=== PATIENT | male | born 1930 | race Caucasian/White ===

== ENCOUNTER 2017-01-01 10:20 | Emergency (ER) | payer MEDICARE, MEDICAID ==
[2017-01-01 10:36] VITALS: BP 111/67; PULSE 87; RESP 17; TEMP 97.4; O2SAT 97
--- NOTE | 2017-01-01 18:53 | C.PDOC ---
Time Seen by Provider: 01/01/17 11:18 Chief Complaint (Nursing): Rib Injury Past Medical History Vital Signs: Last Vital Signs Temp 97.4 F L 01/01/17 10:35 Pulse 87 01/01/17 10:35 Resp 17 01/01/17 10:35 BP 111/67 01/01/17 10:35 Pulse Ox 97 01/01/17 10:35 - Medical History PMH: Asthma, HTN Family History: States: Unknown Family Hx - Social History Hx Alcohol Use: No Hx Substance Use: No - Immunization History Hx Tetanus Toxoid Vaccination: No Hx Influenza Vaccination: No Hx Pneumococcal Vaccination: No Review Of Systems Review Of Systems: ROS cannot be obtained secondary to pt's inabilty to answer questions. ED Course And Treatment O2 Sat by Pulse Oximetry: 97 Disposition - Disposition Disposition: ELOPEMENT - ER ONLY Disposition Time: 10:35 Condition: UNKNOWN - Clinical Impression Clinical Impression: Patient left without being seen
--- NOTE | 2017-01-06 21:44 | CARD ---
APPROVED REPORT EKG Measurement Heart [id number] <Conclusion> Normal sinus rhythm Right bundle branch block Left anterior fascicular block Bifascicular block Abnormal ECG
== END 2017-01-01 11:43 | disposition left against medical advice (07) ==
LOC: C.ER 10:20
DX: S09.93XA Unspecified injury of face, initial encounter (principal); X58.XXXA Exposure to other specified factors, initial encounter; Z02.9 Encounter for administrative examinations, unspecified
CPT/HCPCS: 93005; LWBS0

== ENCOUNTER 2018-03-11 10:58 | Inpatient (IN) | payer MEDICARE, MEDICAID ==
--- NOTE | 2018-03-11 13:01 | C.PDOC ---
History Of Present Illness 87 year old patient sent to ED by PMD Dr. Hong for evaluation. Patient reports pain to the left calf and foot for the past 2 weeks. Patient also states onset of redness to same area for an unknown duration. Denies associated pain with bearing weight or movement, trauma, swelling, fever, chills. REFERRED DR HONG FOR EVAL. NEW ONSET L FOOT/CALF PAIN X 2 WEEKS. NEW ONSET REDNESS UNK DURATION. NO TRAUMA. NO ASSOC W WT BEAR OR MOVEMENT. NO SWELL, FEVER CHILLS. EXAM NONTOXIC EXT CHRONIC RED DISCOLORATION L MID CALF TO FOOT, NONBLANCHING. NO SWELL, EDEMA INCONSIST DP PULSE W DOPPLER L FOOT. STRONG DP R FOOT REMAINDER ENG Time Seen by Provider: 03/11/18 12:28 Chief Complaint (Nursing): Medical Clearance History Per: Patient History/Exam Limitations: no limitations Onset/Duration Of Symptoms: Days Current Symptoms Are (Timing): Still Present Past Medical History Reviewed: Historical Data, Nursing Documentation, Vital Signs Vital Signs: Last Vital Signs Temp 97.9 F 03/11/18 15:35 Pulse 89 03/11/18 15:35 Resp 20 03/11/18 15:35 BP 127/62 03/11/18 15:35 Pulse Ox 93 L 03/11/18 17:07 - Medical History PMH: Asthma, HTN Surgical History: No Surg Hx Family History: States: No Known Family Hx - Social History Hx Alcohol Use: No Hx Substance Use: No - Immunization History Hx Tetanus Toxoid Vaccination: No Hx Influenza Vaccination: No Hx Pneumococcal Vaccination: No Review Of Systems Except As Marked, All Systems Reviewed And Found Negative. Constitutional: Negative for: Fever, Chills Musculoskeletal: Positive for: Leg Pain (left), Foot Pain (left). Negative for : Other (leg/foot swelling) Neurological: Negative for: Weakness, Numbness Physical Exam - Physical Exam Appears: Non-toxic Skin: Warm, Dry, Other (NO GANGRENE, ULCERS) Head: Atraumatic, Normacephalic Eye(s): bilateral: Normal Inspection Neck: Normal ROM, Supple Chest: Symmetrical Cardiovascular: Rhythm Regular Respiratory: Normal Breath Sounds, No Rales, No Rhonchi, No Wheezing, Other ( NARD) Gastrointestinal/Abdominal: Soft, No Tenderness Back: Normal Inspection Extremity: No Swelling, Other (extreme chronic PURPLE/red discoloration from l foot>DISTAL L LEG, nonblanching.) Extremity: Right: Normal Color And Temperature, Bilateral: Atraumatic, No Pedal Edema Pulses: Left Dorsalis Pedis: Decreased (inconsistent DP pulse with doppler left foot), Right Dorsalis Pedis: Normal (strong) Neurological/Psych: Oriented x3, Normal Speech, Normal Cognition, Normal Motor, Normal Sensation Gait: Steady ED Course And Treatment - Laboratory Results Result Diagrams: 03/11/18 13:38 03/11/18 13:38 ECG: Interpreted By Me ECG Rhythm: Sinus Rhythm O2 Sat by Pulse Oximetry: 93 (RA) - Other Rad CXR X-Ray: Read By Radiologist Interpretation: FINDINGS: LUNGS: Minimal linear atelectatic fibrosis right lower lobe laterally. Bilateral lung quevedo otherwise unremarkable. PLEURA: No pneumothorax or pleural fluid seen. CARDIOVASCULAR: Normal. OSSEOUS STRUCTURES: Old healed right 7th and 8th rib fractures noted posteriorly. VISUALIZED UPPER ABDOMEN: Normal. OTHER FINDINGS: None. IMPRESSION: No acute infiltrate, pleural effusion or pneumothorax bilaterally. Examination is remarkable for linear atelectasis or fibrosis in the right lower lobe base laterally. Left Foot X-Ray: Read By Radiologist Interpretation: FINDINGS: BONES: No interval acute cardiopulmonary disease appreciated. JOINTS: NormalMild hallux valgus deformity. Further, additional degenerative changes seen throughout the interphalangeal joints diffusely which are diminished in joint space significantly and have surrounding them sclerotic cortical surfaces. . SOFT TISSUES: Normal. OTHER FINDINGS: None. IMPRESSION : No acute fracture dislocation. Degenerative changes are identified at the forefoot including hallux valgus deformity. Progress - Re-Evaluation Re-evaluation Note: 03/11/18 13:04 D/W PODIATRY RESIDENT WILL EVAL IN ER 03/11/18 14:20 SP EVAL PODIATRY, LIKELY REQUIRES VASCULAR EVAL AND STUDIES. PT APPEARS COMFORTABLE, NONTOXIC UNCH FROM INITIAL EXAM. FAMILY @ BEDSIDE. PT AND FAMILY ADVISED NEED FOR VASCULAR EVAL. UNABLE TO PERFORM ANGIO DUE TO ABN CREAT. PS DOES NOT WANT ADMISSION "NO MATTER WHAT" AND PREFERS TO HAVE VASC EVAL WITH PMD, OUTPT. FAMILY VOICES UNDERSTANDING OF PT WISHES AND ER PLAN. PENDING DOPPLER. 03/11/18 15:52 EXAM UNCH PRIOR. DUPLEX REPORT REVIEWED. PT STILL REFUSES TO STAY AND PREFERS TO DC, RETURN TOMORROW FOR ADMISSION. PENDING CALLBACK DR GUZMÁN. LOVENOX 03/11/18 16:[address] GUZMÁN AND WILL EVAL IN ER. 03/11/18 17:05 S/P EVAL DR GUZMÁN, ADMIT MEDICINE, ANTICOAG, IVF D/W DR Lance [facility] WILL ADMIT - Data Reviewed Data Reviewed: Lab, Diagnostic imaging, EKG, Old records - Continuity of Care Discussed patient case with:: Patient, Family-HIPPA compliant Medical Decision Making Medical Decision Making: Plan: * Venous blood gas shock panel * EKG * Labs Disposition Counseled Patient/Family Regarding: Studies Performed, Diagnosis - Disposition Disposition: HOSPITALIZED Disposition Time: 17:06 Condition: SERIOUS - POA Present On Arrival: None - Clinical Impression Clinical Impression: Arterial insufficiency of lower extremity, Acute renal insufficiency - Scribe Statement The provider has reviewed the documentation as recorded by the Barbaraibrosita Workman Keshawn Provider Attestation: All medical record entries made by the Scribrosita were at my direction and personally dictated by me. I have reviewed the chart and agree that the record accurately reflects my personal performance of the history, physical exam, medical decision making, and the department course for this patient. I have also personally directed, reviewed, and agree with the discharge instructions and disposition. Decision To Admit - Pt Status Changed To: Hospital Disposition Of: Inpatient - Admit Certification Admit to Inpatient:: After my assessment, the patient will require hospitalization for at least two midnights. This is because of the severity of symptoms shown, intensity of services needed, and/or the medical risk in this patient being treated as an outpatient. - InPatient: Physician Admission Certification: I certify that this patient requires 2 or more midnights of care for the following reason:: SEE NOTE - . Bed Request Type: Regular Admitting Physician: Kiko Camara Patient Diagnosis: Arterial insufficiency of lower extremity, Acute renal insufficiency
--- NOTE | 2018-03-11 13:25 | RAD ---
Date of service: 03/11/2018 PROCEDURE: CHEST RADIOGRAPH, 1 VIEW HISTORY: SOB COMPARISON: Chest radiographs 06/05/2017. FINDINGS: LUNGS: Minimal linear atelectatic fibrosis right lower lobe laterally. Bilateral lung quevedo otherwise unremarkable. PLEURA: No pneumothorax or pleural fluid seen. CARDIOVASCULAR: Normal. OSSEOUS STRUCTURES: Old healed right 7th and 8th rib fractures noted posteriorly. VISUALIZED UPPER ABDOMEN: Normal. OTHER FINDINGS: None. IMPRESSION: No acute infiltrate, pleural effusion or pneumothorax bilaterally. Examination is remarkable for linear atelectasis or fibrosis in the right lower lobe base laterally.
--- NOTE | 2018-03-11 13:36 | RAD ---
Date of service: 03/11/2018 PROCEDURE: Left Foot Radiographs. HISTORY: PAIN COMPARISON: None. FINDINGS: BONES: No interval acute cardiopulmonary disease appreciated. JOINTS: NormalMild hallux valgus deformity. Further, additional degenerative changes seen throughout the interphalangeal joints diffusely which are diminished in joint space significantly and have surrounding them sclerotic cortical surfaces. . SOFT TISSUES: Normal. OTHER FINDINGS: None. IMPRESSION: No acute fracture dislocation. Degenerative changes are identified at the forefoot including hallux valgus deformity.
[2018-03-11 13:48] LABS: VENOUS BLOOD GAS BASE EXCESS -2.1 mmol/L (0.0-2.0); VENOUS BLOOD GAS PCO2 60 mmHg (40-60); VENOUS BLOOD GAS PO2 13 mm/Hg (30-55); VENOUS BLOOD PH 7.25 (7.32-7.43)
[2018-03-11 13:53] LABS: BASO # 0.1 K/uL (0.0-0.2); BASO % 0.6 % (0.0-2.0); EOS # 0.3 K/uL (0.0-0.7); EOS % 2.4 % (0.0-4.0); HEMOGLOBIN 14.4 g/dL (12.0-18.0); LYMPH # 1.6 K/uL (1.0-4.3); LYMPH % 12.6 % (20.0-40.0); MEAN CELL VOLUME 95.6 fL (80.0-94.0); MEAN CORPUSCULAR HEMOGLOBIN 31.5 pg (27.0-31.0); MEAN CORPUSCULAR HGB CONC 32.9 g/dL (33.0-37.0); MEAN PLATELET VOLUME 7.3 fL (7.2-11.7); MONO # 1.2 K/uL (0.0-0.8); MONO % 9.4 % (0.0-10.0); NEUT # 9.7 K/uL (1.8-7.0); RBC 4.58 Mil/uL (4.40-5.90); RED CELL DISTRIBUTION WIDTH 15.5 % (11.5-14.5); WHITE BLOOD COUNT 12.9 K/uL (4.8-10.8)
[2018-03-11 13:56] LABS: INR 1.1; PROTHROMBIN TIME 11.6 SECONDS (9.7-12.2)
[2018-03-11 14:07] LABS: CALCIUM 9.2 mg/dl (8.6-10.4)
--- NOTE | 2018-03-11 14:50 | CP.PCM.CON ---
History of Present Illness - History of Present Illness History of Present Illness: 87 y/o male with PMHx of HTN seen in ED today after consultation for left lower extremity pain and redness. States he has pain in the entire left lower extremity whenever he walks. Admits it is a cramping sensation. Also admits to calf pain and foot pain x 2 weeks in duration. Denies any pain or discomfort in the RLE. Denies tingling numbness or burning to the lower extremities. Denies F/ C/N/V/CP/SOB PSH: denies SocHx: former cigarette smoker; denies EtOH or drug use All: NKDA Review of Systems - Review of Systems All systems: reviewed and no additional remarkable complaints except (per HPI) Past Patient History - Past Social History Smoking Status: Former Smoker - CARDIAC Hx Hypertension: Yes - PULMONARY Hx Asthma: Yes - PSYCHIATRIC Hx Substance Use: No - SURGICAL HISTORY Hx Surgeries: No Meds Allergies/Adverse Reactions: Allergies Allergy/AdvReac Type Severity Reaction Status Date / Time No Known Allergies Allergy Verified 03/11/18 11:17 Physical Exam - Constitutional Appears: Well, Non-toxic, No Acute Distress - Extremities Exam Additional comments: Lower extremity exam: Vasc: DP/PT pulses 1/4 R, non-palpable to LLE. Temperature gradient warm to cool on R, cool to cold on L. CFT delayed to all digits on LLE; <3 sec to RLE. Derm: Redness noted to entirety of LLE. No open lesions, no ecchymosis. Neuro: Protective sensation grossly intact Ortho: Diffuse tenderness to palpation of entirety of LLE including posterior calf pain. - Neurological Exam Neurological exam: Alert, Oriented x3 - Psychiatric Exam Psychiatric exam: Normal Affect, Normal Mood Results - Vital Signs Recent Vital Signs: Last Vital Signs Temp 97.9 F 03/11/18 11:19 Pulse 87 03/11/18 11:19 Resp 22 03/11/18 11:19 BP 111/69 03/11/18 11:19 Pulse Ox 93 L 03/11/18 14:26 - Labs Result Diagrams: 03/11/18 13:38 03/11/18 13:38 Labs: Laboratory Results - last 24 hr 03/11/18 03/11/18 03/11/18 13:38 13:38 13:38 WBC 12.9 H RBC 4.58 Hgb 14.4 Hct 43.8 MCV 95.6 H MCH 31.5 H MCHC 32.9 L RDW 15.5 H Plt Count 517 H MPV 7.3 Neut % (Auto) 75.0 Lymph % (Auto) 12.6 L [place] % (Auto) 9.4 Eos % (Auto) 2.4 Baso % (Auto) 0.6 Neut # (Auto) 9.7 H Lymph # (Auto) 1.6 [place] # (Auto) 1.2 H Eos # (Auto) 0.3 Baso # (Auto) 0.1 PT 11.6 INR 1.1 APTT 34 pO2 VBG pH VBG pCO2 VBG HCO3 VBG Total CO2 VBG O2 Sat (Calc) VBG Base Excess VBG Potassium Glucose Lactate Sodium 142 Potassium 4.2 Chloride 101 Carbon Dioxide 27 Anion Gap 19 BUN 33 H Creatinine 2.1 H Est GFR ( Amer) 36 Est GFR (Non-Af Amer) 30 Random Glucose 105 Calcium 9.2 Venous Blood Potassium 03/11/18 13:45 WBC RBC Hgb Hct MCV MCH MCHC RDW Plt Count MPV Neut % (Auto) Lymph % (Auto) [place] % (Auto) Eos % (Auto) Baso % (Auto) Neut # (Auto) Lymph # (Auto) [place] # (Auto) Eos # (Auto) Baso # (Auto) PT INR APTT pO2 13 L VBG pH 7.25 L VBG pCO2 60 VBG HCO3 20.9 VBG Total CO2 28.1 H VBG O2 Sat (Calc) 12.5 L VBG Base Excess -2.1 L VBG Potassium 3.9 Glucose 100 Lactate 1.9 Sodium 138.0 Potassium Chloride 103.0 Carbon Dioxide Anion Gap BUN Creatinine Est GFR ( Amer) Est GFR (Non-Af Amer) Random Glucose Calcium Venous Blood Potassium 3.9 Assessment & Plan - Assessment and Plan (Free Text) Assessment: 87 y/o male with LLE pain likely secondary to peripheral vascular disease Plan: Pt seen and evaluated in ED Discussed with attending Dr. Canseco Pt referred to primary care for referral to vascular surgeon to get angiogram for evaluation of LLE circulation Extremity U/S (-) for DVT Pt to follow up as outpatient for management of possible PVD Thank you for this consult
[2018-03-11] MEDS ORDERED: Enoxaparin 60 mg Syringe SC STA (15:51)
[2018-03-11] MEDS ORDERED: Enoxaparin 100 mg Syringe ONE (15:58)
--- NOTE | 2018-03-11 17:38 | CP.PCM.CON ---
History of Present Illness - History of Present Illness History of Present Illness: VASCULAR SURGERY CONSULT NOTE FOR DR. UGZMÁN 87yo M with PMHx of HTN presents to the ED with left lower extremity pain. The pain has been present for about 2 weeks. He has pain when walking. No pain on the right side. Denies any pain or discomfort in the RLE. Denies tingling numbness or burning to the lower extremities. Denies F/C/N/V/CP/SOB. PMHx: HTN, diverticulosis PSH: denies SocHx: former cigarette smoker; former EtOH, denies drug use All: NKDA Review of Systems - Review of Systems All systems: reviewed and no additional remarkable complaints except (as per HPI ) Past Patient History - Past Social History Smoking Status: Former Smoker - CARDIAC Hx Hypertension: Yes - PULMONARY Hx Asthma: Yes - PSYCHIATRIC Hx Substance Use: No - SURGICAL HISTORY Hx Surgeries: No Meds Allergies/Adverse Reactions: Allergies Allergy/AdvReac Type Severity Reaction Status Date / Time No Known Allergies Allergy Verified 03/11/18 11:17 Physical Exam - Constitutional Appears: Well, Non-toxic, No Acute Distress - Head Exam Head Exam: ATRAUMATIC, NORMAL INSPECTION - Respiratory Exam Respiratory Exam: NORMAL BREATHING PATTERN. absent: Respiratory Distress - Cardiovascular Exam Cardiovascular Exam: +S1, +S2 - GI/Abdominal Exam GI & Abdominal Exam: Soft. absent: Distended, Firm, Guarding, Rebound, Rigid, Tenderness - Extremities Exam Additional comments: Left foot cool to touch, Right foot warm Left femoral + doppler signal, no doppler signals to DP or PT Right femoral palpable pulse - Neurological Exam Neurological exam: Alert, Oriented x3 - Psychiatric Exam Psychiatric exam: Normal Affect, Normal Mood - Skin Skin Exam: Dry Additional comments: left foot cool Results - Vital Signs Recent Vital Signs: Last Vital Signs Temp 97.9 F 03/11/18 15:35 Pulse 89 03/11/18 15:35 Resp 20 03/11/18 15:35 BP 127/62 03/11/18 15:35 Pulse Ox 93 L 03/11/18 17:07 - Labs Result Diagrams: 03/11/18 13:38 03/11/18 13:38 Labs: Laboratory Results - last 24 hr 03/11/18 03/11/18 03/11/18 13:38 13:38 13:38 WBC 12.9 H RBC 4.58 Hgb 14.4 Hct 43.8 MCV 95.6 H MCH 31.5 H MCHC 32.9 L RDW 15.5 H Plt Count 517 H MPV 7.3 Neut % (Auto) 75.0 Lymph % (Auto) 12.6 L [place] % (Auto) 9.4 Eos % (Auto) 2.4 Baso % (Auto) 0.6 Neut # (Auto) 9.7 H Lymph # (Auto) 1.6 [place] # (Auto) 1.2 H Eos # (Auto) 0.3 Baso # (Auto) 0.1 PT 11.6 INR 1.1 APTT 34 pO2 VBG pH VBG pCO2 VBG HCO3 VBG Total CO2 VBG O2 Sat (Calc) VBG Base Excess VBG Potassium Glucose Lactate Sodium 142 Potassium 4.2 Chloride 101 Carbon Dioxide 27 Anion Gap 19 BUN 33 H Creatinine 2.1 H Est GFR ( Amer) 36 Est GFR (Non-Af Amer) 30 Random Glucose 105 Calcium 9.2 Venous Blood Potassium 03/11/18 13:45 WBC RBC Hgb Hct MCV MCH MCHC RDW Plt Count MPV Neut % (Auto) Lymph % (Auto) [place] % (Auto) Eos % (Auto) Baso % (Auto) Neut # (Auto) Lymph # (Auto) [place] # (Auto) Eos # (Auto) Baso # (Auto) PT INR APTT pO2 13 L VBG pH 7.25 L VBG pCO2 60 VBG HCO3 20.9 VBG Total CO2 28.1 H VBG O2 Sat (Calc) 12.5 L VBG Base Excess -2.1 L VBG Potassium 3.9 Glucose 100 Lactate 1.9 Sodium 138.0 Potassium Chloride 103.0 Carbon Dioxide Anion Gap BUN Creatinine Est GFR ( Amer) Est GFR (Non-Af Amer) Random Glucose Calcium Venous Blood Potassium 3.9 Assessment & Plan - Assessment and Plan (Free Text) Assessment: 87yo M with PMHx of HTN presents to the ED with left cold foot - Pt needs CTA - Elevated Cr 2.1 (no baseline) - Will hydrate and give mucomyst for CTA tomorrow - Discussed plan with Dr. Diamond Lima PGY-4
[2018-03-11] MEDS: Sodium Chloride 0.9% 1,000 ML IV SCH (18:13)
[2018-03-11] MEDS: Acetylcysteine 20% Inhal Soln (4ml) PO SCH (18:27)
[2018-03-11 18:29] LABS: SQUAMOUS EPITHIAL < 1 /hpf (0-5); URINE BILIRUBIN NEGATIVE (NEGATIVE); URINE BLOOD NEGATIVE (NEGATIVE); URINE CLARITY Clear (Clear); URINE COLOR Yellow (YELLOW); URINE GLUCOSE (UA) NORMAL (Normal); URINE LEUKOCYTE ESTERASE NEG Leu/uL (Negative); URINE PROTEIN NEGATIVE (NEGATIVE); URINE UROBILINOGEN NORMAL mg/dL (0.2-1.0)
[2018-03-11] MEDS ORDERED: Acetylcysteine 20% Inhal Soln (4ml) PO SCH (19:00)
--- NOTE | 2018-03-11 20:43 | CP.PCM.HP ---
Past Patient History - Past Social History Smoking Status: Former Smoker - CARDIAC Hx Hypertension: Yes - PULMONARY Hx Asthma: Yes - PSYCHIATRIC Hx Substance Use: No - SURGICAL HISTORY Hx Surgeries: No Meds Allergies/Adverse Reactions: Allergies Allergy/AdvReac Type Severity Reaction Status Date / Time No Known Allergies Allergy Verified 03/11/18 11:17 Physical Exam - Constitutional Appears: Well - Head Exam Head Exam: ATRAUMATIC, NORMAL INSPECTION, NORMOCEPHALIC - Eye Exam Eye Exam: EOMI, Normal appearance, PERRL Pupil Exam: NORMAL ACCOMODATION, PERRL - ENT Exam ENT Exam: Mucous Membranes Moist, Normal Exam - Neck Exam Neck exam: Positive for: Normal Inspection - Respiratory Exam Respiratory Exam: Decreased Breath Sounds - Cardiovascular Exam Cardiovascular Exam: REGULAR RHYTHM, +S1, +S2 - GI/Abdominal Exam GI & Abdominal Exam: Diminished Bowel Sounds, Soft - Rectal Exam Rectal Exam: Deferred Results - Vital Signs Recent Vital Signs: Last Vital Signs Temp 98.8 F 03/11/18 20:16 Pulse 84 03/11/18 20:16 Resp 18 03/11/18 20:16 BP 159/86 H 03/11/18 20:16 Pulse Ox 94 L 03/11/18 20:16 - Labs Result Diagrams: 03/11/18 13:38 03/11/18 13:38 Labs: Laboratory Results - last 24 hr 03/11/18 03/11/18 03/11/18 13:38 13:38 13:38 WBC 12.9 H RBC 4.58 Hgb 14.4 Hct 43.8 MCV 95.6 H MCH 31.5 H MCHC 32.9 L RDW 15.5 H Plt Count 517 H MPV 7.3 Neut % (Auto) 75.0 Lymph % (Auto) 12.6 L [place] % (Auto) 9.4 Eos % (Auto) 2.4 Baso % (Auto) 0.6 Neut # (Auto) 9.7 H Lymph # (Auto) 1.6 [place] # (Auto) 1.2 H Eos # (Auto) 0.3 Baso # (Auto) 0.1 PT 11.6 INR 1.1 APTT 34 pO2 VBG pH VBG pCO2 VBG HCO3 VBG Total CO2 VBG O2 Sat (Calc) VBG Base Excess VBG Potassium Glucose Lactate Sodium 142 Potassium 4.2 Chloride 101 Carbon Dioxide 27 Anion Gap 19 BUN 33 H Creatinine 2.1 H Est GFR ( Amer) 36 Est GFR (Non-Af Amer) 30 Random Glucose 105 Calcium 9.2 Venous Blood Potassium Urine Color Urine Clarity Urine pH Ur Specific [place] Urine Protein Urine Glucose (UA) Urine Ketones Urine Blood Urine Nitrate Urine Bilirubin Urine Urobilinogen Ur Leukocyte Esterase Urine WBC (Auto) Urine RBC (Auto) Ur Squamous Epith Cells Hyaline Casts 03/11/18 03/11/18 13:45 18:20 WBC RBC Hgb Hct MCV MCH MCHC RDW Plt Count MPV Neut % (Auto) Lymph % (Auto) [place] % (Auto) Eos % (Auto) Baso % (Auto) Neut # (Auto) Lymph # (Auto) [place] # (Auto) Eos # (Auto) Baso # (Auto) PT INR APTT pO2 13 L VBG pH 7.25 L VBG pCO2 60 VBG HCO3 20.9 VBG Total CO2 28.1 H VBG O2 Sat (Calc) 12.5 L VBG Base Excess -2.1 L VBG Potassium 3.9 Glucose 100 Lactate 1.9 Sodium 138.0 Potassium Chloride 103.0 Carbon Dioxide Anion Gap BUN Creatinine Est GFR ( Amer) Est GFR (Non-Af Amer) Random Glucose Calcium Venous Blood Potassium 3.9 Urine Color Yellow Urine Clarity Clear Urine pH 5.0 Ur Specific [place] 1.017 Urine Protein Negative Urine Glucose (UA) Normal Urine Ketones Negative Urine Blood Negative Urine Nitrate Negative Urine Bilirubin Negative Urine Urobilinogen Normal Ur Leukocyte Esterase Neg Urine WBC (Auto) < 1 Urine RBC (Auto) < 1 Ur Squamous Epith Cells < 1 Hyaline Casts 6-10 H
[2018-03-11] MEDS ORDERED: Piperacillin/Tazobact 3.375 gm 100 ML IVPB ONE (21:24)
[2018-03-11] MEDS: Piperacillin/Tazobact 3.375 GM in Sodium Chloride 100 ML IVPB SCH (21:26)
[2018-03-12] MEDS: Sodium Chloride 0.9% 1,000 ML IV SCH ×2 (02:54→11:00)
[2018-03-12] MEDS: Piperacillin/Tazobact 3.375 GM in Sodium Chloride 100 ML IVPB SCH ×3 (05:20→21:15)
[2018-03-12 09:55] LABS: ALB/GLOB RATIO 1.2 (1.0-2.1); ALBUMIN 3.3 g/dL (3.5-5.0); CALCIUM 8.4 mg/dl (8.6-10.4)
[2018-03-12] MEDS ORDERED: Sodium Chloride 0.9% 1,000 ML IV ONE (10:15)
[2018-03-12] MEDS: Acetylcysteine 20% Inhal Soln (4ml) PO SCH (10:59)
[2018-03-12] MEDS: Pantoprazole 40 mg EC Tab PO SCH (10:59)
[2018-03-12] MEDS: Enoxaparin 60 mg Syringe SC SCH (10:59)
[2018-03-12] MEDS ORDERED: Iodixanol 320 mg/ml 150 ml Bottle IV ONE (11:04)
--- NOTE | 2018-03-12 12:39 | CP.PCM.PN ---
Subjective - Date & Time of Evaluation Date of Evaluation: 03/12/18 Time of Evaluation: 12:40 - Subjective Subjective: clinically same Objective - Vital Signs/Intake and Output Vital Signs (last 24 hours): Temp Pulse Resp BP Pulse Ox 98.0 F 78 20 168/88 H 96 03/12/18 07:00 03/12/18 07:00 03/12/18 07:00 03/12/18 07:00 03/12/18 07:00 Intake and Output: 03/12/18 03/12/18 06:59 18:59 Intake Total 950 Balance 950 - Medications Medications: Current Medications Enoxaparin Sodium (Lovenox) 60 mg SC DAILY [facility] Last Admin: 03/12/18 10:59 Dose: 60 mg Sodium Chloride (Sodium Chloride 0.9%) 1,000 mls @ 125 mls/hr IV .Q8H [facility] Last Admin: 03/12/18 11:00 Dose: Not Given Piperacillin Sod/Tazobactam (Sod 3.375 gm/ Sodium Chloride) 100 mls @ 200 mls/ hr IVPB Q8H [facility] PRN Reason: Protocol Last Admin: 03/12/18 05:20 Dose: 200 mls/hr Pantoprazole Sodium (Protonix Ec Tab) 40 mg PO DAILY [facility] Last Admin: 03/12/18 10:59 Dose: 40 mg Pneumococcal Polyvalent Vaccine (Pneumovax 23 Vaccine) 0.5 ml IM .ONCE ONE Stop: 03/14/18 10:01 - Labs Labs: 03/11/18 13:38 03/12/18 09:21 PT 11.6 SECONDS (9.7-12.2) 03/11/18 13:38 INR 1.1 03/11/18 13:38 APTT 34 SECONDS (21-34) 03/11/18 13:38 - Constitutional Appears: Well - Head Exam Head Exam: ATRAUMATIC, NORMAL INSPECTION, NORMOCEPHALIC - Eye Exam Eye Exam: EOMI, Normal appearance, PERRL Pupil Exam: NORMAL ACCOMODATION, PERRL - ENT Exam ENT Exam: Mucous Membranes Moist, Normal Exam - Neck Exam Neck Exam: Full ROM, Normal Inspection. absent: Lymphadenopathy - Respiratory Exam Respiratory Exam: Decreased Breath Sounds - Cardiovascular Exam Cardiovascular Exam: REGULAR RHYTHM, +S1, +S2 - GI/Abdominal Exam GI & Abdominal Exam: Soft, Diminished Bowel Sounds - Rectal Exam Rectal Exam: Deferred
--- NOTE | 2018-03-12 15:00 | CT ---
Date of service: 03/12/2018 PROCEDURE: CT Angiography Abdomen, Pelvis and Lower Extremity with Contrast HISTORY: left cold foot COMPARISON: None available. TECHNIQUE: Technique: CT angiography of the abdomen, pelvis and bilateral lower extremities performed in the arterial phase of enhancement. Coronal and sagittal reformats, and well as rotating MIP images of the vessels generated at the workstation. Intravenous contrast dose: 150 milliliters Visipaque 320 Radiation dose: Total exam DLP = mGy-cm. This CT exam was performed using one or more of the following dose reduction techniques: Automated exposure control, adjustment of the mA and/or kV according to patient size, and/or use of iterative reconstruction technique. FINDINGS: CT ANGIOGRAPHY: ABDOMINAL AORTA:: There is significant plaque throughout the abdominal aorta with moderate stenosis of the infrarenal aorta. MAJOR AORTIC BRANCHES: Celiac [place]: Unremarkable. Superior mesenteric artery: Unremarkable. Inferior mesenteric artery: Unremarkable. Renal arteries: Unremarkable. PELVIC ARTERIES: Right Common Iliac: Unremarkable. Right External Iliac: Mild stenosis of the external iliac artery. Right Internal Iliac: Unremarkable. Left Common Iliac: Occlusion of left common iliac artery. Left External Iliac: Occlusion of the external iliac artery. Left Internal Iliac: Occlusion of the internal iliac artery. RIGHT LOWER EXTREMITY ARTERIES: Right Common Femoral: Unremarkable. Right Superficial Femoral: Occlusion of the SFA with no reconstitution. Right Profunda Femoris: Unremarkable. Right Popliteal:Popliteal artery fills via collateral and is unremarkable. Right Anterior Tibial: Unremarkable. Right Tibioperoneal Trunk: Unremarkable. Right Posterior Tibial: Unremarkable. Right Peroneal: Unremarkable. Right dorsalis pedis : Unremarkable. LEFT LOWER EXTREMITY ARTERIES: Left Common Femoral: Absence of the common femoral artery which fills via collateral. Left Superficial Femoral: Occlusion of the SFA with distal reconstitution. The distal SFA is mildly stenotic. Left Profunda Femoris: Unremarkable. Left Popliteal: Fills via collateral and is mildly stenotic. Left Anterior Tibial: Occlusion anterior tibial artery in the mid segment. Left Tibioperoneal Trunk: Unremarkable. Left Posterior Tibial: Unremarkable. Left Peroneal: Unremarkable. Left Dorsalis pedis: Unremarkable. NON-ANGIOGRAPHIC ASPECT OF THE EXAM: LOWER THORAX: Unremarkable. LIVER: Unremarkable. No gross lesion or ductal dilatation. GALLBLADDER AND BILE DUCTS: Unremarkable. PANCREAS: Unremarkable. No gross lesion or ductal dilatation. SPLEEN: Unremarkable. ADRENALS: Unremarkable. No mass. KIDNEYS AND URETERS: Unremarkable. No hydronephrosis. No solid mass. STOMACH AND BOWEL: Limited evaluation of PO contrast. No obvious mass. APPENDIX: Normal appendix. PERITONEUM: Unremarkable. No free fluid. No free air. LYMPH NODES: Unremarkable. No enlarged lymph nodes. BLADDER: Unremarkable. REPRODUCTIVE: Unremarkable. BONES: No acute fracture. OTHER FINDINGS: None. IMPRESSION: CT ANGIOGRAM ABDOMEN/PELVIS: 1. Significant plaque throughout the abdominal aorta with moderate stenosis of the infrarenal aorta. 2. There is no flow seen within the left common iliac artery external iliac artery and internal iliac artery. 3. Right common iliac artery is unremarkable. There is mild stenosis of the external iliac artery on the right. LEFT LOWER EXTREMITY CT ANGIOGRAM: 1. Left Common femoral artery fills via collateral and is mildly stenotic. 2. There is occlusion of the left SFA with distal reconstitution. The distal SFA is some mildly stenotic. 3. Profunda femoral artery is unremarkable. 4. Popliteal artery is moderately stenotic and fills via collaterals. 5. Runoff shows a patent peroneal artery and posterior tibial artery. Anterior tibial artery occludes in the mid segment. RIGHT LOWER EXTREMITY CT ANGIOGRAM: 1. The common femoral artery profunda femoral artery are unremarkable. 2. There is occlusion of the SFA with no reconstitution. 3. The popliteal artery is unremarkable. 4. Runoff shows patent 3 vessels.
--- NOTE | 2018-03-12 15:05 | VASCLAB ---
Date of service: 03/11/2018 PROCEDURE: Left Lower Extremity Venous Duplex Exam. HISTORY: PAIN R/O DVT PRIORS: None. TECHNIQUE: Left common femoral, femoral, popliteal and posterior tibial, peroneal and great saphenous veins were evaluated. Flow was assessed with color Doppler, compressibility, assessment of phasic flow and augmentation response. Report prepared by CARRINGTON Smith, RVT FINDINGS: LEFT: 1. Common Femoral Vein: 1.1. Compressibility - Fully compressible: Thrombus - None : Flow - Phasic: Augmentation -Normal: Reflux - None. 2. Femoral Vein: 2.1. Compressibility - Fully compressible: Thrombus - None: Flow - Phasic: Augmentation -Normal: Reflux - None. 3. Popliteal Vein: 3.1. Compressibility - Fully compressible: Thrombus - None: Flow - Phasic: Augmentation -Normal: Reflux - None. 4. Posterior Tibial Vein: 4.1. Compressibility - Fully compressible: Thrombus - None: Flow - Phasic: Augmentation -Normal: Reflux - Yes. 5. Peroneal Vein: 5.1. Compressibility - Fully compressible: Thrombus - None: Flow - Phasic: Augmentation -Normal: Reflux - None. 6. Great Saphenous Vein: 6.1. Compressibility - Fully compressible: Thrombus - None: Flow - Phasic: Augmentation - Normal: Reflux - None. OTHER FINDINGS: Absent flow noted in the left superficial femoral artery. Dr. Phelps notified about the findings. IMPRESSION: No evidence of deep or superficial vein thrombosis of the left lower extremity with excellent venous flow. 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 Normal venous flow noted in the right common femoral vein.
--- NOTE | 2018-03-12 16:31 | CP.PCM.CON ---
History of Present Illness - History of Present Illness History of Present Illness: CC: Preop Clearance HPI: 87 year old man with no pmx. Admitted to [facility] for severe pain in left foot due to chronic limb ischemia. Past Patient History - Past Medical History & Family History Past Medical History?: Yes - Past Social History Smoking Status: Heavy Smoker > 10 Cigarettes Daily - CARDIAC Hx Cardiac Disorders: Yes Hx Hypertension: Yes - PULMONARY Hx Respiratory Disorders: Yes Hx Asthma: Yes - NEUROLOGICAL Hx Neurological Disorder: No - HEENT Hx HEENT Problems: No - RENAL Hx Chronic Kidney Disease: No - ENDOCRINE/METABOLIC Hx Endocrine Disorders: No - HEMATOLOGICAL/ONCOLOGICAL Hx Blood Disorders: No - INTEGUMENTARY Hx Dermatological Problems: No - MUSCULOSKELETAL/RHEUMATOLOGICAL Hx Musculoskeletal Disorders: No Hx Falls: No - GASTROINTESTINAL Hx Gastrointestinal Disorders: No - GENITOURINARY/GYNECOLOGICAL Hx Genitourinary Disorders: No - PSYCHIATRIC Hx Psychophysiologic Disorder: No Hx Substance Use: No - SURGICAL HISTORY Hx Surgeries: No - ANESTHESIA Hx Anesthesia: No Meds Allergies/Adverse Reactions: Allergies Allergy/AdvReac Type Severity Reaction Status Date / Time No Known Allergies Allergy Verified 03/11/18 11:17 - Medications Medications: Current Medications Enoxaparin Sodium (Lovenox) 60 mg SC DAILY [facility] Last Admin: 03/12/18 10:59 Dose: 60 mg Sodium Chloride (Sodium Chloride 0.9%) 1,000 mls @ 125 mls/hr IV .Q8H [facility] Last Admin: 03/12/18 11:00 Dose: Not Given Piperacillin Sod/Tazobactam (Sod 3.375 gm/ Sodium Chloride) 100 mls @ 200 mls/ hr IVPB Q8H [facility] PRN Reason: Protocol Last Admin: 03/12/18 13:40 Dose: 200 mls/hr Pantoprazole Sodium (Protonix Ec Tab) 40 mg PO DAILY [facility] Last Admin: 03/12/18 10:59 Dose: 40 mg Pneumococcal Polyvalent Vaccine (Pneumovax 23 Vaccine) 0.5 ml IM .ONCE ONE Stop: 03/14/18 10:01 Physical Exam - Constitutional Appears: Well, Non-toxic - Head Exam Head Exam: ATRAUMATIC, NORMAL INSPECTION - Eye Exam Eye Exam: PERRL. absent: Scleral icterus - ENT Exam ENT Exam: Normal External Ear Exam Additional comments: Poor dentition - Neck Exam Neck exam: Negative for: Lymphadenopathy, Thyromegaly - Respiratory Exam Respiratory Exam: Wheezes, NORMAL BREATHING PATTERN - Cardiovascular Exam Cardiovascular Exam: REGULAR RHYTHM, RRR, +S1, +S2. absent: JVD - GI/Abdominal Exam GI & Abdominal Exam: Normal Bowel Sounds. absent: Organomegaly - Extremities Exam Additional comments: Left foot is cool and erythematous - Neurological Exam Neurological exam: CN II-XII Intact, Oriented x3 - Psychiatric Exam Psychiatric exam: Normal Affect, Normal Mood Results - Vital Signs Recent Vital Signs: Last Vital Signs Temp 97.4 F L 03/12/18 15:00 Pulse 84 03/12/18 15:00 Resp 20 03/12/18 15:00 BP 148/76 03/12/18 15:00 Pulse Ox 96 03/12/18 15:00 - Labs Result Diagrams: 03/11/18 13:38 03/12/18 09:21 Labs: Laboratory Results - last 24 hr 03/11/18 03/12/18 18:20 09:21 Sodium 139 Potassium 4.4 Chloride 105 Carbon Dioxide 23 Anion Gap 16 BUN 27 H Creatinine 1.8 H Est GFR ( Amer) 43 Est GFR (Non-Af Amer) 36 Random Glucose 118 H Calcium 8.4 L Total Bilirubin 0.7 AST 37 ALT 15 L Alkaline Phosphatase 64 Total Protein 6.2 L Albumin 3.3 L Globulin 2.9 Albumin/Globulin Ratio 1.2 Urine Color Yellow Urine Clarity Clear Urine pH 5.0 Ur Specific [place] 1.017 Urine Protein Negative Urine Glucose (UA) Normal Urine Ketones Negative Urine Blood Negative Urine Nitrate Negative Urine Bilirubin Negative Urine Urobilinogen Normal Ur Leukocyte Esterase Neg Urine WBC (Auto) < 1 Urine RBC (Auto) < 1 Ur Squamous Epith Cells < 1 Hyaline Casts 6-10 H - EKG Data EKG Interpreted by: Myself EKG shows normal: Sinus rhythm - Imaging and Cardiology Chest x-ray Additional comment: No infiltrates or effusions Assessment & Plan - Assessment and Plan (Free Text) Assessment: 87 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
--- NOTE | 2018-03-12 17:11 | CARD ---
APPROVED REPORT Date of service: 03/12/2018 EXAM: Two-dimensional and M-mode echocardiogram with Doppler and color Doppler. Other Information Quality : GoodRhythm : INDICATION Pre-Op 2D DIMENSIONS IVSd0.9 (0.7-1.1cm)LVDd3.9 (3.9-5.9cm) PWd1.0 (0.7-1.1cm)LVDs2.5 (2.5-4.0cm) LVEF (%)67.0 (>50%) M-Mode DIMENSIONS Left Atrium (MM)3.30 (2.5-4.0cm)IVSd1.00 (0.7-1.1cm) Aortic Root3.10 (2.2-3.7cm)LVDd5.00 (4.0-5.6cm) Aortic Cusp Exc.1.90 (1.5-2.0cm)PWd0.80 (0.7-1.1cm) LVDs3.10 (2.0-3.8cm)LVEF (%)67 (>50%) Mitral Valve E/A ratio0.0 TDI E/Lateral E'0.0E/Medial E'0.0 Tricuspid Valve RAP [id number] Peak [id number] LEFT VENTRICLE The left ventricle is normal size. There is normal left ventricular wall thickness. The left ventricular function is normal. The left ventricular ejection fraction is within the normal range. There is normal LV segmental wall motion. Transmitral Doppler flow pattern is Grade I-abnormal relaxation pattern. RIGHT VENTRICLE The right ventricle is normal size. There is normal right ventricular wall thickness. The right ventricular systolic function is normal. ATRIA The left atrium size is normal. The right atrium size is normal. AORTIC VALVE The aortic valve is mildly thickened. No aortic regurgitation is present. There is no aortic valvular stenosis. MITRAL VALVE The mitral valve is mildly thickened. There is no evidence of mitral valve prolapse. There is no mitral valve stenosis. Mitral regurgitation is mild. TRICUSPID VALVE The tricuspid valve is normal in structure. There is mild tricuspid regurgitation. There is mild pulmonary hypertension. PULMONIC VALVE The pulmonary valve is normal in structure. There is no pulmonic valvular regurgitation. GREAT VESSELS The aortic root is normal in size. The IVC is normal in size and collapses >50% with inspiration. <Conclusion> The left ventricle is normal size. There is normal left ventricular wall thickness. The left ventricular function is normal. The left ventricular ejection fraction is within the normal range. There is normal LV segmental wall motion. Transmitral Doppler flow pattern is Grade I-abnormal relaxation pattern. Mitral regurgitation is mild. There is mild tricuspid regurgitation. There is mild pulmonary hypertension.
--- NOTE | 2018-03-12 17:59 | CP.PCM.PN ---
Subjective - Date & Time of Evaluation Date of Evaluation: 03/12/18 Time of Evaluation: 10:00 - Subjective Subjective: VASCULAR SURGERY PROGRESS NOTE FOR DR. GUZMÁN Patient seen and examined at bedside. He reports pain in his left leg. Plan for CTA today. Objective - Vital Signs/Intake and Output Vital Signs (last 24 hours): Temp Pulse Resp BP Pulse Ox 97.4 F L 84 20 148/76 96 03/12/18 15:00 03/12/18 15:00 03/12/18 15:00 03/12/18 15:00 03/12/18 15:00 Intake and Output: 03/12/18 03/12/18 06:59 18:59 Intake Total 950 1200 Output Total 900 Balance 950 300 - Medications Medications: Current Medications Enoxaparin Sodium (Lovenox) 60 mg SC DAILY [facility] Last Admin: 03/12/18 10:59 Dose: 60 mg Piperacillin Sod/Tazobactam (Sod 3.375 gm/ Sodium Chloride) 100 mls @ 200 mls/ hr IVPB Q8H [facility] PRN Reason: Protocol Last Admin: 03/12/18 13:40 Dose: 200 mls/hr Lactated Ringer's (Lactated Ringer's) 1,000 mls @ 125 mls/hr IV .Q8H [facility] Pantoprazole Sodium (Protonix Ec Tab) 40 mg PO DAILY [facility] Last Admin: 03/12/18 10:59 Dose: 40 mg Pneumococcal Polyvalent Vaccine (Pneumovax 23 Vaccine) 0.5 ml IM .ONCE ONE Stop: 03/14/18 10:01 - Labs Labs: 03/11/18 13:38 03/12/18 09:21 PT 11.6 SECONDS (9.7-12.2) 03/11/18 13:38 INR 1.1 03/11/18 13:38 APTT 34 SECONDS (21-34) 03/11/18 13:38 - Constitutional Appears: Non-toxic, No Acute Distress - Respiratory Exam Respiratory Exam: NORMAL BREATHING PATTERN. absent: Respiratory Distress - Cardiovascular Exam Cardiovascular Exam: +S1, +S2 - GI/Abdominal Exam GI & Abdominal Exam: Soft. absent: Tenderness - Extremities Exam Additional comments: Left foot cool No doppler signal to DP or PT Assessment and Plan - Assessment and Plan (Free Text) Assessment: 87yo M with PMHx of HTN presents with left cold foot and found to have SFA occlusion - CTA: Occlusion of the left SFA with distal reconstitution. The distal SFA is some mildly stenotic. Occlusion of Right SFA with no reconstitution. - Plan for OR for fem-fem bypass tomorrow - NPO past midnight - Type and cross - May continue Lovenox - Needs cardiac clearance, ECHO done, cardio planning for stress test - Discussed plan with Dr. Diamond Lima PGY-4
[2018-03-12] MEDS ORDERED: Lactated Ringer's 1,000 ML IV SCH (18:00)
[2018-03-13] MEDS: Lactated Ringer's 1,000 ML IV SCH ×3 (02:00→21:16)
[2018-03-13] MEDS: Piperacillin/Tazobact 3.375 GM in Sodium Chloride 100 ML IVPB SCH ×3 (05:57→21:15)
[2018-03-13 06:35] LABS: BASO # 0.1 K/uL (0.0-0.2); BASO % 0.7 % (0.0-2.0); EOS # 0.2 K/uL (0.0-0.7); EOS % 1.6 % (0.0-4.0); LYMPH # 1.8 K/uL (1.0-4.3); LYMPH % 13.9 % (20.0-40.0); MEAN CELL VOLUME 94.1 fL (80.0-94.0); MEAN CORPUSCULAR HEMOGLOBIN 31.6 pg (27.0-31.0); MEAN CORPUSCULAR HGB CONC 33.6 g/dL (33.0-37.0); MEAN PLATELET VOLUME 7.7 fL (7.2-11.7); MONO # 1.2 K/uL (0.0-0.8); MONO % 9.7 % (0.0-10.0); NEUT # 9.4 K/uL (1.8-7.0); NEUT % 74.1 % (50.0-75.0); RBC 4.43 Mil/uL (4.40-5.90); WHITE BLOOD COUNT 12.7 K/uL (4.8-10.8)
[2018-03-13 07:37] LABS: CALCIUM 8.7 mg/dl (8.6-10.4)
[2018-03-13] MEDS ORDERED: Caffeine Citrated **INJ** 20 MG/ML IV ONE (07:41)
--- NOTE | 2018-03-13 09:17 | CP.PCM.PN ---
Subjective - Date & Time of Evaluation Date of Evaluation: 03/13/18 Time of Evaluation: 09:08 - Subjective Subjective: Events reviewed Objective - Vital Signs/Intake and Output Vital Signs (last 24 hours): Temp Pulse Resp BP Pulse Ox 98.4 F 81 20 176/84 H 95 03/13/18 07:25 03/13/18 08:13 03/13/18 07:25 03/13/18 07:25 03/13/18 07:25 Intake and Output: 03/13/18 03/13/18 06:59 18:59 Intake Total 850 Output Total 600 Balance 250 - Medications Medications: Current Medications Enoxaparin Sodium (Lovenox) 60 mg SC DAILY [facility] Last Admin: 03/12/18 10:59 Dose: 60 mg Piperacillin Sod/Tazobactam (Sod 3.375 gm/ Sodium Chloride) 100 mls @ 200 mls/ hr IVPB Q8H [facility] PRN Reason: Protocol Last Admin: 03/13/18 05:57 Dose: 200 mls/hr Lactated Ringer's (Lactated Ringer's) 1,000 mls @ 100 mls/hr IV .Q10H [facility] Last Admin: 03/13/18 02:00 Dose: 100 mls/hr Pantoprazole Sodium (Protonix Ec Tab) 40 mg PO DAILY [facility] Last Admin: 03/12/18 10:59 Dose: 40 mg Pneumococcal Polyvalent Vaccine (Pneumovax 23 Vaccine) 0.5 ml IM .ONCE ONE Stop: 03/14/18 10:01 Tramadol HCl (Ultram) 25 mg PO TID PRN PRN Reason: Pain, Mild (1-3) Last Admin: 03/13/18 01:59 Dose: 25 mg - Labs Labs: 03/13/18 06:29 03/13/18 06:29 PT 11.6 SECONDS (9.7-12.2) 03/11/18 13:38 INR 1.1 03/11/18 13:38 APTT 34 SECONDS (21-34) 03/11/18 13:38 - Constitutional Appears: Well, Chronically Ill - Respiratory Exam Respiratory Exam: Clear to Ausculation Bilateral, NORMAL BREATHING PATTERN - Cardiovascular Exam Cardiovascular Exam: REGULAR RHYTHM, RRR, +S1, +S2, +S4. absent: JVD - GI/Abdominal Exam GI & Abdominal Exam: Normal Bowel Sounds. 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
[2018-03-13] MEDS: Pantoprazole 40 mg EC Tab PO SCH (11:33)
[2018-03-13] MEDS: Enoxaparin 60 mg Syringe SC SCH (11:36)
--- NOTE | 2018-03-13 13:42 | CARD ---
APPROVED REPORT Date of service: 03/11/2018 EKG Measurement Heart [id number] TN [id number] <Conclusion> Normal sinus rhythm Left axis deviation Right bundle branch block Abnormal ECG
--- NOTE | 2018-03-13 14:17 | CP.PCM.PN ---
Subjective - Date & Time of Evaluation Date of Evaluation: 03/13/18 Time of Evaluation: 07:00 - Subjective Subjective: VASCULAR SURGERY PROGRESS NOTE FOR DR. GUZMÁN Patient seen and examined at bedside. He reports pain in his left leg. Patient going for stress test today in preparation for fem-fem bypass. Objective - Vital Signs/Intake and Output Vital Signs (last 24 hours): Temp Pulse Resp BP Pulse Ox 98.4 F 81 20 176/84 H 95 03/13/18 07:25 03/13/18 08:13 03/13/18 07:25 03/13/18 07:25 03/13/18 07:25 Intake and Output: 03/13/18 03/13/18 06:59 18:59 Intake Total 850 Output Total 600 Balance 250 - Medications Medications: Current Medications Albuterol/Ipratropium (Duoneb 3 Mg/0.5 Mg (3 Ml) Ud) 3 ml INH RQ6 [facility] Enoxaparin Sodium (Lovenox) 60 mg SC DAILY [facility] Last Admin: 03/13/18 11:36 Dose: Not Given Piperacillin Sod/Tazobactam (Sod 3.375 gm/ Sodium Chloride) 100 mls @ 200 mls/ hr IVPB Q8H [facility] PRN Reason: Protocol Last Admin: 03/13/18 13:50 Dose: 200 mls/hr Lactated Ringer's (Lactated Ringer's) 1,000 mls @ 100 mls/hr IV .Q10H [facility] Last Admin: 03/13/18 13:09 Dose: Not Given Labetalol HCl (Trandate) 100 mg PO BID [facility] Last Admin: 03/13/18 11:33 Dose: Not Given Pantoprazole Sodium (Protonix Ec Tab) 40 mg PO DAILY [facility] Last Admin: 03/13/18 11:33 Dose: Not Given Pneumococcal Polyvalent Vaccine (Pneumovax 23 Vaccine) 0.5 ml IM .ONCE ONE Stop: 03/14/18 10:01 Tramadol HCl (Ultram) 25 mg PO TID PRN PRN Reason: Pain, Mild (1-3) Last Admin: 03/13/18 01:59 Dose: 25 mg - Labs Labs: 03/13/18 06:29 03/13/18 06:29 PT 11.6 SECONDS (9.7-12.2) 03/11/18 13:38 INR 1.1 03/11/18 13:38 APTT 34 SECONDS (21-34) 03/11/18 13:38 - Constitutional Appears: Non-toxic, No Acute Distress - Head Exam Head Exam: ATRAUMATIC, NORMAL INSPECTION - Eye Exam Eye Exam: EOMI, Normal appearance - Respiratory Exam Respiratory Exam: NORMAL BREATHING PATTERN. absent: Respiratory Distress - Cardiovascular Exam Cardiovascular Exam: +S1, +S2 - GI/Abdominal Exam GI & Abdominal Exam: Soft. absent: Tenderness - Extremities Exam Additional comments: Left foot warmer than yesterday but still cooler than right leg - Neurological Exam Neurological Exam: Alert, Awake - Psychiatric Exam Psychiatric exam: Normal Affect, Normal Mood Assessment and Plan - Assessment and Plan (Free Text) Assessment: 87yo M with PMHx of HTN presents with left cold foot and found to have SFA occlusion - CTA: Occlusion of the left SFA with distal reconstitution. The distal SFA is some mildly stenotic. Occlusion of Right SFA with no reconstitution. - Plan for OR for fem-fem bypass Saturday - NPO past midnight - Type and cross - May continue Lovenox - Needs cardiac clearance, ECHO done, cardio planning for stress test - Discussed plan with Dr. Diamond Lima PGY-4
--- NOTE | 2018-03-13 16:15 | CARD ---
APPROVED REPORT Date of service: 03/13/2018 Protocol: PHARMACOLOGICAL STRESS Test Type: LEXISCAN Test Indications: PRE OP Medications: LIST SCAN Medical History: PRE OP Target HR: 133 bpm Resting Heart Rate: 87 bpm Resting Blood Pressure: 150/70mmHg submaximum (85%): 113 bpm TEST SUMMARY [id number]/70.0. INFUSIONDOSE 100:[id number]/70.0. [id number]/80.0. PROCEDURE Pharmacologic stress testing was performed using 0.4mg per 5ml of regadenoson given intravenously over 7-10 seconds. POST EXERCISE Target HR: No Max HR: 89 bpm 83% of Maximum Predicted HR: 133 bpm Exercise duration: 00:30 min:sec, 0 Stage Exercise capacity: 1.0METs Max Blood Pressure: 166/80mmHg Chest Pain: Yes, Angina index: 0 Arrhythmia: Yes, ST Change: Yes, Deviation: 0 mm INTERPRETATION Stress EKG Conclusion: Shortness of breath resolved after 30 seconds without reversal agent. Follow up nuclear perfusion images. RESTING ECG Rhythm: Sinus Conduction: Normal Arrhythmias: None STRESS ECG Rhythm: Sinus Conduction: Normal Arrhythmias: None Stress EKG shows no significant changes. EXAM: Myocardial Perfusion STRESS/REST Imaging Protocol The imaging protocol used to acquire images was Stress Tc-99m/rest Tc-99m 1 day Stress Spect myocardial perfusion imaging was performed in supine position 55 minutes following the injection of 12.7 mCi of Tc-99 Myoview. Gated Rest Spect was performed 65 minutes after intravenous 30.0 mci Tc-99 Myoview injection. The images were gated to evaluate regional wall motion and calculate ventricular ejection fraction.Images were reconstructed using backfilter projection method in short horizontal and verticle long axis. Spect slices were generated. RESTING DATA EDV60.70inSX3.60L/min1/3 Pk. Filling Rate0.87EDV/sec LV Time to Pk. Filling Utmk563.97msec ESV18.00mlMyocardial Zpfs953.00gLV Time to Pk. Ejection Nanj270.15msec Pk. Fill Rate1.77EDV/secAv. Heart Rate86.00bpm EF70.00%Pk. Emptying Rate4.52ESV/sec STRESS DATA EDV60.99qhYY2.00L/min ESV8.00mlMyocardial Ewxl477.00g Pk. Fill Rate4.76EDV/sec EF87.00%Pk. Emptying Rate5.86ESV/sec 1/3 Pk. Filling Rate0.91EDV/secRegional WT score at stress:1.00 LV Time to Pk. Filling Rate:156.12msecRegional WM score at stress:0.00 LV Time to Pk. Ejection Rate:136.72msecSummed WT score at stress:10.00 Av. Heart Rate96.00bpmSummed WM score at stress:0.00 LV Perf. Quant 17 Seg. SSS0.00 17 Seg. SRS2.00 17 Seg. SDS0.00 Stress Defect Extent (% LAD)0.00Rest Defect Extent (% LAD)0.00Rev. Defect Extent (% LAD)0.00 Stress Defect Extent (% LCX)0.00Rest Defect Extent (% LCX)11.30Rev. Defect Extent (% LCX)0.00 Stress Defect Extent (% RCA)0.00Rest Defect Extent (% RCA)6.70Rev. Defect Extent (% RCA)0.00 Stress Defect Extent (% SILVINA)0.00Rest Defect Extent (% SILVINA)4.60Rev. Defect Extent (% SILVINA)0.00 Other Information Quality:Good IMPRESSION Normal Myocardial Perfusion exercise stress study Global LV Function: Normal Stress Test Summary: Normal LV Perfusion Summary: Normal Left Ventricle LV Function:Left ventricle systolic function is normal. The Ejection Fraction is >70%. Regional Wall Motion:There is normal left ventricular wall motion. Metabolism/Perfusion There are no perfusion/metabolism defects. Conclusion 1. No evidence for reversible ischemia 2. Normal LVEF and wall motion 3. * Patient may proceed with LE vascular surgery without need of additional cardiac intervention.
--- NOTE | 2018-03-13 16:31 | CP.PCM.CON ---
History of Present Illness - History of Present Illness History of Present Illness: reason for consultation: pulmonary clearance for surgery 87-year-old male with history of COPD, hypertension who presented to emergency room with left lower extremity pain and redness. According to daughter and patient also having shortness of breath on minimal exertion and uses nebulizer treatment and Advair at home. Patient has long history of smoking and quit many years ago. ABG consistent with hypercapnia. denies cough, denies fever chills, denies chest PSH: denies SocHx: former cigarette smoker; denies EtOH or drug use All: NKda Review of Systems - Review of Systems All systems: reviewed and no additional remarkable complaints except (shortness of breath on exertion) Past Patient History - Past Medical History & Family History Past Medical History?: Yes - Past Social History Smoking Status: Heavy Smoker > 10 Cigarettes Daily - CARDIAC Hx Cardiac Disorders: Yes Hx Hypertension: Yes - PULMONARY Hx Respiratory Disorders: Yes Hx Asthma: Yes - NEUROLOGICAL Hx Neurological Disorder: No - HEENT Hx HEENT Problems: No - RENAL Hx Chronic Kidney Disease: No - ENDOCRINE/METABOLIC Hx Endocrine Disorders: No - HEMATOLOGICAL/ONCOLOGICAL Hx Blood Disorders: No - INTEGUMENTARY Hx Dermatological Problems: No - MUSCULOSKELETAL/RHEUMATOLOGICAL Hx Musculoskeletal Disorders: No Hx Falls: No - GASTROINTESTINAL Hx Gastrointestinal Disorders: No - GENITOURINARY/GYNECOLOGICAL Hx Genitourinary Disorders: No - PSYCHIATRIC Hx Psychophysiologic Disorder: No Hx Substance Use: No - SURGICAL HISTORY Hx Surgeries: No - ANESTHESIA Hx Anesthesia: No Meds Allergies/Adverse Reactions: Allergies Allergy/AdvReac Type Severity Reaction Status Date / Time No Known Allergies Allergy Verified 03/11/18 11:17 - Medications Medications: Current Medications Albuterol/Ipratropium (Duoneb 3 Mg/0.5 Mg (3 Ml) Ud) 3 ml INH RQ6 [facility] Enoxaparin Sodium (Lovenox) 60 mg SC DAILY [facility] Last Admin: 03/13/18 11:36 Dose: Not Given Piperacillin Sod/Tazobactam (Sod 3.375 gm/ Sodium Chloride) 100 mls @ 200 mls/ hr IVPB Q8H [facility] PRN Reason: Protocol Last Admin: 03/13/18 13:50 Dose: 200 mls/hr Lactated Ringer's (Lactated Ringer's) 1,000 mls @ 100 mls/hr IV .Q10H [facility] Last Admin: 03/13/18 13:09 Dose: Not Given Labetalol HCl (Trandate) 100 mg PO BID [facility] Last Admin: 03/13/18 11:33 Dose: Not Given Methylprednisolone (Solu-Medrol) 40 mg IV Q8H [facility] Pantoprazole Sodium (Protonix Ec Tab) 40 mg PO DAILY [facility] Last Admin: 03/13/18 11:33 Dose: Not Given Pneumococcal Polyvalent Vaccine (Pneumovax 23 Vaccine) 0.5 ml IM .ONCE ONE Stop: 03/14/18 10:01 Tramadol HCl (Ultram) 25 mg PO TID PRN PRN Reason: Pain, Mild (1-3) Last Admin: 03/13/18 01:59 Dose: 25 mg Physical Exam - Head Exam Head Exam: ATRAUMATIC, NORMOCEPHALIC - Eye Exam Eye Exam: Normal appearance - ENT Exam ENT Exam: Mucous Membranes Moist - Neck Exam Neck exam: Positive for: Normal Inspection - Respiratory Exam Respiratory Exam: Decreased Breath Sounds - Cardiovascular Exam Cardiovascular Exam: REGULAR RHYTHM - GI/Abdominal Exam GI & Abdominal Exam: Normal Bowel Sounds, Soft Results - Vital Signs Recent Vital Signs: Last Vital Signs Temp 98.4 F 03/13/18 07:25 Pulse 81 03/13/18 08:13 Resp 20 03/13/18 07:25 BP 176/84 H 03/13/18 07:25 Pulse Ox 95 03/13/18 07:25 - Labs Result Diagrams: 03/13/18 06:29 03/13/18 06:29 Labs: Laboratory Results - last 24 hr 03/12/18 03/13/18 03/13/18 19:35 06:29 06:29 WBC 12.7 H RBC 4.43 Hgb 14.0 Hct 41.7 MCV 94.1 H MCH 31.6 H MCHC 33.6 RDW 15.0 H Plt Count 427 H MPV 7.7 Neut % (Auto) 74.1 Lymph % (Auto) 13.9 L Starke % (Auto) 9.7 Eos % (Auto) 1.6 Baso % (Auto) 0.7 Neut # (Auto) 9.4 H Lymph # (Auto) 1.8 Starke # (Auto) 1.2 H Eos # (Auto) 0.2 Baso # (Auto) 0.1 Sodium 139 Potassium 4.0 Chloride 104 Carbon Dioxide 24 Anion Gap 15 BUN 21 H Creatinine 1.4 Est GFR ( Amer) 58 Est GFR (Non-Af Amer) 48 Random Glucose 103 Calcium 8.7 Blood Type O POSITIVE Antibody Screen Negative Assessment & Plan (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
--- NOTE | 2018-03-13 17:29 | CP.PCM.PN ---
Subjective - Date & Time of Evaluation Date of Evaluation: 03/13/18 Time of Evaluation: 11:00 - Subjective Subjective: clinically same Objective - Vital Signs/Intake and Output Vital Signs (last 24 hours): Temp Pulse Resp BP Pulse Ox 97.3 F L 96 H 20 164/71 H 98 03/13/18 15:00 03/13/18 15:00 03/13/18 15:00 03/13/18 15:00 03/13/18 15:00 Intake and Output: 03/13/18 03/13/18 06:59 18:59 Intake Total 850 Output Total 600 Balance 250 - Medications Medications: Current Medications Albuterol/Ipratropium (Duoneb 3 Mg/0.5 Mg (3 Ml) Ud) 3 ml INH RQ6 [facility] Enoxaparin Sodium (Lovenox) 60 mg SC DAILY [facility] Last Admin: 03/13/18 11:36 Dose: Not Given Piperacillin Sod/Tazobactam (Sod 3.375 gm/ Sodium Chloride) 100 mls @ 200 mls/ hr IVPB Q8H [facility] PRN Reason: Protocol Last Admin: 03/13/18 13:50 Dose: 200 mls/hr Lactated Ringer's (Lactated Ringer's) 1,000 mls @ 100 mls/hr IV .Q10H [facility] Last Admin: 03/13/18 13:09 Dose: Not Given Labetalol HCl (Trandate) 100 mg PO BID [facility] Last Admin: 03/13/18 11:33 Dose: Not Given Methylprednisolone (Solu-Medrol) 40 mg IV Q8H [facility] Pantoprazole Sodium (Protonix Ec Tab) 40 mg PO DAILY [facility] Last Admin: 03/13/18 11:33 Dose: Not Given Pneumococcal Polyvalent Vaccine (Pneumovax 23 Vaccine) 0.5 ml IM .ONCE ONE Stop: 03/14/18 10:01 Tramadol HCl (Ultram) 25 mg PO TID PRN PRN Reason: Pain, Mild (1-3) Last Admin: 03/13/18 01:59 Dose: 25 mg - Labs Labs: 03/13/18 06:29 03/13/18 06:29 PT 11.6 SECONDS (9.7-12.2) 03/11/18 13:38 INR 1.1 03/11/18 13:38 APTT 34 SECONDS (21-34) 03/11/18 13:38 - Constitutional Appears: Well - Head Exam Head Exam: ATRAUMATIC, NORMAL INSPECTION, NORMOCEPHALIC - Eye Exam Eye Exam: EOMI, Normal appearance, PERRL Pupil Exam: NORMAL ACCOMODATION, PERRL - ENT Exam ENT Exam: Mucous Membranes Moist, Normal Exam - Neck Exam Neck Exam: Full ROM, Normal Inspection. absent: Lymphadenopathy - Respiratory Exam Respiratory Exam: Decreased Breath Sounds - Cardiovascular Exam Cardiovascular Exam: REGULAR RHYTHM, +S1, +S2 - GI/Abdominal Exam GI & Abdominal Exam: Soft, Diminished Bowel Sounds - Rectal Exam Rectal Exam: Deferred
[2018-03-13] MEDS: MethylPREDNISolone 40 mg Vial IV SCH (17:31)
[2018-03-13] MEDS: Albuterol-Ipratrop 3 mg / 0.5 (3 ml) UD INH SCH (19:55)
[2018-03-14] MEDS: MethylPREDNISolone 40 mg Vial IV SCH ×3 (00:30→18:41)
[2018-03-14] MEDS: Albuterol-Ipratrop 3 mg / 0.5 (3 ml) UD INH SCH ×3 (02:58→19:00)
[2018-03-14] MEDS: Piperacillin/Tazobact 3.375 GM in Sodium Chloride 100 ML IVPB SCH (05:31)
[2018-03-14 07:09] LABS: BASO % 0.2 % (0.0-2.0); HEMOGLOBIN 13.7 g/dL (12.0-18.0); LYMPH # 0.7 K/uL (1.0-4.3); LYMPH % 9.5 % (20.0-40.0); MEAN CELL VOLUME 94.1 fL (80.0-94.0); MEAN CORPUSCULAR HEMOGLOBIN 31.8 pg (27.0-31.0); MEAN CORPUSCULAR HGB CONC 33.7 g/dL (33.0-37.0); MEAN PLATELET VOLUME 7.6 fL (7.2-11.7); MONO # 0.1 K/uL (0.0-0.8); MONO % 1.4 % (0.0-10.0); NEUT % 88.9 % (50.0-75.0); PLATELET COUNT 396 K/uL (130-400); RED CELL DISTRIBUTION WIDTH 14.9 % (11.5-14.5); WHITE BLOOD COUNT 7.9 K/uL (4.8-10.8)
[2018-03-14 07:17] LABS: BLOOD UREA NITROGEN 19 mg/dL (9-20); CALCIUM 8.6 mg/dl (8.6-10.4); GFR AFRICAN-AMERICAN > 60; GFR NON-AFRICAN AMERICAN 52
[2018-03-14] MEDS: Lactated Ringer's 1,000 ML IV SCH (07:57)
[2018-03-14 08:45] LABS: BANDS 7 % (0-2); LYMPHOCYTE 6 % (20-40); MONOCYTE 2 % (0-10); NEUTROPHIL 85 % (50-75); TOTAL CELLS COUNTED 100
[2018-03-14 08:46] LABS: ANISOCYTOSIS SLIGHT; PLATELET ESTIMATE NORMAL (NORMAL)
[2018-03-14] MEDS: Enoxaparin 60 mg Syringe SC SCH (09:16)
[2018-03-14] MEDS: Pantoprazole 40 mg EC Tab PO SCH (09:16)
[2018-03-14] MEDS ORDERED: Pneumococcal 23-Valent Vaccine IM ONE (10:00)
[2018-03-14] MEDS ORDERED: HEPARIN-NS 5,000 UNITS/500 ML 0 UNIT/0 ML BAG IV ONE (12:06)
[2018-03-14] MEDS ORDERED: ceFAZolin 1 gm in NS 0 GM/0 ML BAG IVPB ONE (12:06)
[2018-03-14] MEDS ORDERED: Lactated Ringer's 1,000 ML IV ONE (12:15)
[2018-03-14] MEDS ORDERED: Etomidate 20 mg/10ml Inj IV ONE (12:18)
[2018-03-14] MEDS ORDERED: Succinylcholine Chloride 20 mg/ml Syr (5 ml) IV ONE (12:18)
[2018-03-14] MEDS ORDERED: Rocuronium 10 mg/ml (5 ml) ONE ×2 (12:28→12:59)
[2018-03-14] MEDS ORDERED: Lidocaine 4% (Laryng-O-Jet) Kit MM ONE (12:28)
[2018-03-14] MEDS ORDERED: Vancomycin 1 g Inj ONE (12:53)
[2018-03-14] MEDS ORDERED: Vancomycin 1 gm/D5W 200 ml 1 GM/200 ML BAG IVPB ONE (12:55)
[2018-03-14] MEDS ORDERED: ePHEDrine 50 mg/ml Inj ONE (13:10)
[2018-03-14] MEDS ORDERED: Neostigmine Methylsulfate 3mg/3ml Syringe IV ONE (13:20)
--- NOTE | 2018-03-14 13:50 | CP.PCM.PN ---
Subjective - Date & Time of Evaluation Date of Evaluation: 03/14/18 Time of Evaluation: 10:45 - Subjective Subjective: patient seen and examined Lying comfortably in no acute distress Denies shortness of breath No chest pain Patient states that he used BiPAP at night Objective - Vital Signs/Intake and Output Vital Signs (last 24 hours): Temp Pulse Resp BP Pulse Ox 97.6 F 81 20 165/86 H 96 03/14/18 07:53 03/14/18 11:21 03/14/18 07:53 03/14/18 09:16 03/14/18 07:53 Intake and Output: 03/14/18 03/14/18 06:59 18:59 Intake Total 360 Output Total 1151 Balance -791 - Medications Medications: Current Medications Albuterol/Ipratropium (Duoneb 3 Mg/0.5 Mg (3 Ml) Ud) 3 ml INH RQ6 [facility] Last Admin: 03/14/18 08:02 Dose: 3 ml Enoxaparin Sodium (Lovenox) 60 mg SC DAILY [facility] Last Admin: 03/14/18 09:16 Dose: Not Given Piperacillin Sod/Tazobactam (Sod 3.375 gm/ Sodium Chloride) 100 mls @ 200 mls/ hr IVPB Q8H [facility] PRN Reason: Protocol Last Admin: 03/14/18 05:31 Dose: 200 mls/hr Lactated Ringer's (Lactated Ringer's) 1,000 mls @ 100 mls/hr IV .Q10H [facility] Last Admin: 03/14/18 07:57 Dose: Not Given Labetalol HCl (Trandate) 100 mg PO BID [facility] Last Admin: 03/14/18 09:16 Dose: 100 mg Methylprednisolone (Solu-Medrol) 40 mg IV Q8H [facility] Last Admin: 03/14/18 08:22 Dose: 40 mg Pantoprazole Sodium (Protonix Ec Tab) 40 mg PO DAILY [facility] Last Admin: 03/14/18 09:16 Dose: 40 mg Tramadol HCl (Ultram) 25 mg PO TID PRN PRN Reason: Pain, Mild (1-3) Last Admin: 03/14/18 06:46 Dose: 25 mg - Labs Labs: 03/14/18 06:54 03/14/18 06:54 PT 11.6 SECONDS (9.7-12.2) 03/11/18 13:38 INR 1.1 03/11/18 13:38 APTT 34 SECONDS (21-34) 03/11/18 13:38 - Head Exam Head Exam: ATRAUMATIC, NORMOCEPHALIC - ENT Exam ENT Exam: Mucous Membranes Moist - Neck Exam Neck Exam: Normal Inspection - Respiratory Exam Respiratory Exam: Clear to Ausculation Bilateral - Cardiovascular Exam Cardiovascular Exam: REGULAR RHYTHM Assessment and Plan (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
[2018-03-14] MEDS ORDERED: Piperacillin/Tazobact 3.375 gm 100 ML IVPB ONE (13:54)
[2018-03-14] MEDS ORDERED: HEPARIN-NS 5,000 UNITS/500 ML 10,000 UNIT/1,000 ML BAG IV ONE (14:20)
--- NOTE | 2018-03-14 16:01 | PCM.SURG1 ---
Surgeon's Initial Post Op Note - Surgeon's Notes Surgeon: Dr. Fields Electric Meter Inspector: Dr. Lima PGY-4, Dr. Isaacs PGY-1 Type of Anesthesia: General Endo Pre-Operative Diagnosis: Left lower extremity PAD with rest pain Operative Findings: occluded left common femoral artery Post-Operative Diagnosis: Left lower extremity PAD with rest pain Operation Performed: Right to left fem-fem bypass with Dacron graft, left common femoral endarterectomy Specimen/Specimens Removed: plaque Estimated Blood Loss: EBL {In ML}: 150 Blood Products Given: N/A Drains Used: No Drains Post-Op Condition: Fair Date of Surgery/Procedure: 03/14/18 Time of Surgery/Procedure: 16:03
[2018-03-14] MEDS ORDERED: Lactated Ringer's 1,000 ML IV SCH (16:16)
[2018-03-14] MEDS ORDERED: HYDROmorphone 0.5 mg/0.5 ml ISec IVP PRN (16:18)
[2018-03-14] MEDS: Dexmedetomidine Hydrochloride 200 MCG in Sodium Chloride 0.9% 48 ML IV PRN ×2 (16:45→18:31)
[2018-03-14] MEDS ORDERED: Midazolam 2 MG/2 ML VIAL ONE ×2 (16:57→17:18)
[2018-03-14 17:12] LABS: BASO % 0.1 % (0.0-2.0); HEMOGLOBIN 12.4 g/dL (12.0-18.0); LYMPH # 1.1 K/uL (1.0-4.3); MEAN CELL VOLUME 96.1 fL (80.0-94.0); MEAN CORPUSCULAR HEMOGLOBIN 32.1 pg (27.0-31.0); MEAN CORPUSCULAR HGB CONC 33.5 g/dL (33.0-37.0); MEAN PLATELET VOLUME 7.2 fL (7.2-11.7); MONO # 1.1 K/uL (0.0-0.8); MONO % 4.8 % (0.0-10.0); NEUT # 20.4 K/uL (1.8-7.0); NEUT % 90.1 % (50.0-75.0); NRBC % 0.1 % (0.0-2.0); PLATELET COUNT 393 K/uL (130-400); RBC 3.85 Mil/uL (4.40-5.90); RED CELL DISTRIBUTION WIDTH 15.3 % (11.5-14.5); WHITE BLOOD COUNT 22.7 K/uL (4.8-10.8)
[2018-03-14] MEDS: Midazolam 2 MG/2 ML VIAL IVP STA ×2 (17:15→18:45)
[2018-03-14] MEDS: niCARdipine IV 25 MG in Sodium Chloride 0.9% 240 ML IV SCH ×2 (17:45→22:40)
--- NOTE | 2018-03-14 17:59 | CP.PCM.CON ---
<Justice Sykes - Last Filed: 03/14/18 17:08> History of Present Illness - History of Present Illness History of Present Illness: Justice Sykes DO PGY-1, ICU consult for Dr. Rui Camara Pt chart and records were reviewed prior to evaluation. This is a 87 year old male with PMHx of COPD, HTN, diverticulosis who presented to the ED on 03/12/18 with left lower extremity pain. As per ED note, pt was found to have an inconsistent dopplar pulse on the left foot, right foot normal. CTA of abd/pelvis showed significant plaque throughout the abdominal aorta with moderate stenosis of the infrarenal aorta. No flow within the left common iliac artery external iliac artery and internal iliac artery. Occlusion of the left SFA with distal reconstitution. Left popliteal artery is moderately stenotic. Pt underwent right to left femoral-femoral bypass by vascular surgery today. ICU was consulted for neurovascular monitoring after surgery. Pt was seen and examined in the PACU. Pt is moderately agitated, combative and irritable s/p anesthesia and procedure. Pt has dressing over bilateral inguinal areas. Dexmedetomidine gtt was obtained for sedation. Pt was treated with multiple boluses of Dexmedetomidine due to agitation and bending/crossing of his bilateral legs and knees. After sedation was achieved, pt was continued on Dexmedetomidine gtt. Pt required Midazolam 2 mg IVP due to agitation after the first bag of Dexmedtomidine gtt finished. A 12-point ROS was unobtainable due to agitation and subsequent sedation. As per Chart: PMHx: COPD, Diverticulosis, HTN PSH: denies SocHx: former cigarette smoker; denies EtOH or drug use All: NKda Review of Systems - Review of Systems Systems not reviewed;Unavailable: Altered Mental Status All systems: reviewed and no additional remarkable complaints except (see HPI) Past Patient History - Past Medical History & Family History Past Medical History?: Yes - Past Social History Smoking Status: Heavy Smoker > 10 Cigarettes Daily - CARDIAC Hx Hypertension: Yes - PULMONARY Hx Respiratory Disorders: Yes Hx Asthma: Yes - NEUROLOGICAL Hx Neurological Disorder: No - HEENT Hx HEENT Problems: No - RENAL Hx Chronic Kidney Disease: No - ENDOCRINE/METABOLIC Hx Endocrine Disorders: No - HEMATOLOGICAL/ONCOLOGICAL Hx Blood Disorders: No - INTEGUMENTARY Hx Dermatological Problems: No - MUSCULOSKELETAL/RHEUMATOLOGICAL Hx Musculoskeletal Disorders: No Hx Falls: No - GASTROINTESTINAL Hx Gastrointestinal Disorders: No - GENITOURINARY/GYNECOLOGICAL Hx Genitourinary Disorders: No - PSYCHIATRIC Hx Psychophysiologic Disorder: No Hx Substance Use: No - SURGICAL HISTORY Hx Surgeries: No - ANESTHESIA Hx Anesthesia: No Meds Allergies/Adverse Reactions: Allergies Allergy/AdvReac Type Severity Reaction Status Date / Time No Known Allergies Allergy Verified 03/11/18 11:17 - Medications Medications: Current Medications Albuterol/Ipratropium (Duoneb 3 Mg/0.5 Mg (3 Ml) Ud) 3 ml INH RQ6 [facility] Last Admin: 03/14/18 08:02 Dose: 3 ml Aspirin (Aspirin Chewable) 81 mg PO DAILY [facility] Clopidogrel Bisulfate (Plavix) 75 mg PO DAILY [facility] Enoxaparin Sodium (Lovenox) 60 mg SC DAILY [facility] Last Admin: 03/14/18 09:16 Dose: Not Given Hydromorphone HCl (Dilaudid) 0.5 mg IVP Q4H PRN PRN Reason: Pain, severe (8-10) Lactated Ringer's (Lactated Ringer's) 1,000 mls @ 125 mls/hr IV .Q8H [facility] Vancomycin/Sodium Chloride (Vancomycin 1 Gm/Ns 200 Ml) 1 gm in 200 mls @ 166.7 mls/hr IVPB Q24H [facility] PRN Reason: Protocol Stop: 03/20/18 13:01 Nicardipine HCl 25 mg/ Sodium (Chloride) 250 mls @ 50 mls/hr IV .Q5H [facility]; 5 MG/ HR PRN Reason: Protocol Dexmedetomidine HCl 200 mcg/ (Sodium Chloride) 50 mls @ 3.17 mls/hr IV TITR PRN ; Protocol; 0.2 MCG/KG/HR PRN Reason: Sedation Labetalol HCl (Trandate) 100 mg PO BID [facility] Last Admin: 03/14/18 09:16 Dose: 100 mg Methylprednisolone (Solu-Medrol) 40 mg IV Q8H [facility] Last Admin: 03/14/18 08:22 Dose: 40 mg Morphine Sulfate (Morphine) 1 mg IVP Q10M PRN PRN Reason: Pain, severe (8-10) Stop: 03/14/18 18:04 Last Admin: 03/14/18 16:20 Dose: 1 mg Ondansetron HCl (Zofran Inj) 4 mg IVP Q4 PRN PRN Reason: Nausea/Vomiting Pantoprazole Sodium (Protonix Ec Tab) 40 mg PO DAILY [facility] Last Admin: 03/14/18 09:16 Dose: 40 mg Tramadol HCl (Ultram) 25 mg PO TID PRN PRN Reason: Pain, Mild (1-3) Last Admin: 03/14/18 06:46 Dose: 25 mg Physical Exam - Constitutional Appears: Combative (and subsequently sedated for safety due to recent surgery) - Head Exam Head Exam: ATRAUMATIC, NORMAL INSPECTION - Eye Exam Eye Exam: EOMI - ENT Exam ENT Exam: Mucous Membranes Moist - Neck Exam Neck exam: Positive for: Normal Inspection - Respiratory Exam Respiratory Exam: Clear to Auscultation Bilateral, Rhonchi (bilateral bases) - Cardiovascular Exam Cardiovascular Exam: REGULAR RHYTHM, +S1, +S2 - GI/Abdominal Exam GI & Abdominal Exam: Normal Bowel Sounds, Soft - Extremities Exam Extremities exam: Positive for: normal inspection ((+) bruising in right antecubital, likely due to venopuncture) - Back Exam Back exam: NORMAL INSPECTION - Psychiatric Exam Additional comments: (+) sedated - Skin Skin Exam: Dry, Normal Color, Warm Results - Vital Signs Recent Vital Signs: Last Vital Signs Temp 97.6 F 03/14/18 07:53 Pulse 81 03/14/18 11:21 Resp 20 03/14/18 07:53 BP 165/86 H 03/14/18 09:16 Pulse Ox 96 03/14/18 07:53 - Labs Result Diagrams: 03/14/18 06:54 03/14/18 06:54 Labs: Laboratory Results - last 24 hr 03/14/18 03/14/18 06:54 06:54 WBC 7.9 RBC 4.30 L Hgb 13.7 Hct 40.5 MCV 94.1 H MCH 31.8 H MCHC 33.7 RDW 14.9 H Plt Count 396 MPV 7.6 Neut % (Auto) 88.9 H Lymph % (Auto) 9.5 L [place] % (Auto) 1.4 Eos % (Auto) 0.0 Baso % (Auto) 0.2 Neut # (Auto) 7.0 Lymph # (Auto) 0.7 L [place] # (Auto) 0.1 Eos # (Auto) 0.0 Baso # (Auto) 0.0 Neutrophils % (Manual) 85 H Band Neutrophils % 7 H Lymphocytes % (Manual) 6 L Monocytes % (Manual) 2 Platelet Estimate Normal Anisocytosis (manual) Slight Sodium 136 Potassium 4.2 Chloride 102 Carbon Dioxide 21 L Anion Gap 16 BUN 19 Creatinine 1.3 Est GFR ( Amer) > 60 Est GFR (Non-Af Amer) 52 Random Glucose 157 H Calcium 8.6 Assessment & Plan - Assessment and Plan (Free Text) Assessment: This is a 87 year old male with PMHx of COPD, HTN, diverticulosis who presented to the ED on 03/12/18 with left lower extremity pain. As per ED note, pt was found to have an inconsistent dopplar pulse on the left foot, right foot normal. CTA of abd/pelvis showed significant plaque throughout the abdominal aorta with moderate stenosis of the infrarenal aorta. No flow within the left common iliac artery external iliac artery and internal iliac artery. Occlusion of the left SFA with distal reconstitution. Left popliteal artery is moderately stenotic. Pt underwent right to left femoral-femoral bypass by vascular surgery today. ICU was consulted for neurovascular monitoring after surgery. Plan: Neuro: - monitor for mental status changes - pt is AAOx3 at baseline - Precedex gtt for sedation - dilaudid for pain as per vascular surgery - neurovascular checks q1h Cardio: - maintain MAP>65mmHg - keep SBP between 120 and 140 - Nicardipine gtt for BP management - monitor BP and HR while on Precedex gtt - Currently, SBP in 100s, DBP in 60s; NS IVF at 75 mL/hr - ASA and Plavix - post-op troponin is negative - trend troponin q8h - f/u vascular surgery recs Pulm: - Duonebs Q6H - maintain spo2>92% - bpap/cpap prn - CXR - f/u pulmonology recs GI: - HHD - Protonix for pud ppx Renal: - BUN/Cr was normal prior to surgery - post-op CMP - vo in place, strict i and o - maintain urine output greater than 0.5 mL/kg/hr - lactate elevated at 5.1 - trend lactate q4h - continue NS IVF ID: - Leukocytosis is uptrending, possibly due to steroids - pt afebrile - continue empiric antibiotics as per surgery - f/u cxr Heme: - post-op H/H is stable - PLT count is normal - lovenox for vte ppx Endo: - accucheck achs - maintain euglycemia PPX: protonix for pud; lovenox for vte Dispo: Pt will be accepted to the ICU for neurovascular monitoring Case was reviewed and discussed with attending physician, Dr. Rui Camara <Esperanza Camara - Last Filed: 03/15/18 10:17> Meds - Medications Medications: Current Medications Albuterol/Ipratropium (Duoneb 3 Mg/0.5 Mg (3 Ml) Ud) 3 ml INH RQ6 [facility] Last Admin: 03/15/18 02:36 Dose: 3 ml Aspirin (Aspirin Chewable) 81 mg PO DAILY [facility] Last Admin: 03/15/18 09:19 Dose: 81 mg Clopidogrel Bisulfate (Plavix) 75 mg PO DAILY [facility] Last Admin: 03/15/18 09:19 Dose: 75 mg Enoxaparin Sodium (Lovenox) 60 mg SC DAILY [facility] Last Admin: 03/15/18 09:20 Dose: 60 mg Hydromorphone HCl (Dilaudid) 0.5 mg IVP Q4H PRN PRN Reason: Pain, severe (8-10) Last Admin: 03/15/18 05:09 Dose: 0.5 mg Vancomycin/Sodium Chloride (Vancomycin 1 Gm/Ns 200 Ml) 1 gm in 200 mls @ 166.7 mls/hr IVPB Q24H [facility] PRN Reason: Protocol Stop: 03/15/18 13:01 Sodium Chloride (Sodium Chloride 0.9%) 1,000 mls @ 75 mls/hr IV .[id number] [facility] Last Admin: 03/15/18 07:57 Dose: 75 mls/hr Methylprednisolone (Solu-Medrol) 40 mg IV Q8H [facility] Last Admin: 03/15/18 09:20 Dose: 40 mg Ondansetron HCl (Zofran Inj) 4 mg IVP Q4 PRN PRN Reason: Nausea/Vomiting Results - Vital Signs Recent Vital Signs: Last Vital Signs Temp 97.8 F 03/15/18 08:00 Pulse 81 03/15/18 08:00 Resp 18 03/15/18 08:00 BP 145/65 03/15/18 07:57 Pulse Ox 98 03/15/18 08:00 - Labs Result Diagrams: 03/15/18 04:00 03/15/18 06:17 Labs: Laboratory Results - last 24 hr 03/14/18 03/14/18 03/14/18 17:08 17:08 17:08 WBC 22.7 H D RBC 3.85 L Hgb 12.4 Hct 37.0 MCV 96.1 H D MCH 32.1 H MCHC 33.5 RDW 15.3 H Plt Count 393 MPV 7.2 Neut % (Auto) 90.1 H Lymph % (Auto) 5.0 L [place] % (Auto) 4.8 Eos % (Auto) 0.0 Baso % (Auto) 0.1 Neut # (Auto) 20.4 H Lymph # (Auto) 1.1 [place] # (Auto) 1.1 H Eos # (Auto) 0.0 Baso # (Auto) 0.0 Neutrophils % (Manual) 94 H Lymphocytes % (Manual) 4 L Monocytes % (Manual) 2 Toxic Granulation Platelet Estimate Normal Large Platelets Anisocytosis (manual) PT INR APTT Sodium Potassium Chloride Carbon Dioxide Anion Gap BUN Creatinine Est GFR ( Amer) Est GFR (Non-Af Amer) Random Glucose Lactic Acid 5.1 H* Calcium Phosphorus Magnesium Total Bilirubin AST ALT Alkaline Phosphatase Troponin I < 0.0120 Total Protein Albumin Globulin Albumin/Globulin Ratio 03/14/18 03/14/18 03/14/18 20:49 20:49 20:55 WBC 32.7 H RBC 3.89 L Hgb 12.3 Hct 37.2 MCV 95.7 H MCH 31.6 H MCHC 33.0 RDW 15.1 H Plt Count 343 MPV 7.4 Neut % (Auto) 92.6 H Lymph % (Auto) 3.4 L [place] % (Auto) 3.9 Eos % (Auto) 0.0 Baso % (Auto) 0.1 Neut # (Auto) 30.3 H Lymph # (Auto) 1.1 [place] # (Auto) 1.3 H Eos # (Auto) 0.0 Baso # (Auto) 0.0 Neutrophils % (Manual) Lymphocytes % (Manual) Monocytes % (Manual) Toxic Granulation Platelet Estimate Large Platelets Anisocytosis (manual) PT INR APTT Sodium 136 Potassium 4.7 Chloride 104 Carbon Dioxide 21 L Anion Gap 16 BUN 24 H Creatinine 1.4 Est GFR ( Amer) 58 Est GFR (Non-Af Amer) 48 Random Glucose 164 H Lactic Acid 2.0 Calcium 8.0 L Phosphorus 4.0 Magnesium 1.7 Total Bilirubin 0.4 AST 45 ALT 51 Alkaline Phosphatase 53 Troponin I Total Protein 5.9 L Albumin 3.1 L Globulin 2.8 Albumin/Globulin Ratio 1.1 03/15/18 03/15/18 03/15/18 00:26 00:26 04:00 WBC 24.3 H RBC 3.68 L Hgb 11.6 L Hct 35.2 MCV 95.5 H MCH 31.5 H MCHC 33.0 RDW 15.2 H Plt Count 332 MPV 7.7 Neut % (Auto) 94.1 H Lymph % (Auto) 2.2 L [place] % (Auto) 3.6 Eos % (Auto) 0.0 Baso % (Auto) 0.1 Neut # (Auto) 22.9 H Lymph # (Auto) 0.5 L [place] # (Auto) 0.9 H Eos # (Auto) 0.0 Baso # (Auto) 0.0 Neutrophils % (Manual) 94 H Lymphocytes % (Manual) 3 L Monocytes % (Manual) 3 Toxic Granulation Present Platelet Estimate Normal Large Platelets Present Anisocytosis (manual) Slight PT INR APTT Sodium Potassium Chloride Carbon Dioxide Anion Gap BUN Creatinine Est GFR ( Amer) Est GFR (Non-Af Amer) Random Glucose Lactic Acid 1.4 Calcium Phosphorus Magnesium Total Bilirubin AST ALT Alkaline Phosphatase Troponin I < 0.0120 Total Protein Albumin Globulin Albumin/Globulin Ratio 03/15/18 03/15/18 03/15/18 06:17 09:15 09:27 WBC RBC Hgb Hct MCV MCH MCHC RDW Plt Count MPV Neut % (Auto) Lymph % (Auto) [place] % (Auto) Eos % (Auto) Baso % (Auto) Neut # (Auto) Lymph # (Auto) [place] # (Auto) Eos # (Auto) Baso # (Auto) Neutrophils % (Manual) Lymphocytes % (Manual) Monocytes % (Manual) Toxic Granulation Platelet Estimate Large Platelets Anisocytosis (manual) PT 11.5 INR 1.1 APTT 29 Sodium 139 Potassium 4.4 Chloride 106 Carbon Dioxide 21 L Anion Gap 16 BUN 23 H Creatinine 1.2 Est GFR ( Amer) > 60 Est GFR (Non-Af Amer) 57 Random Glucose 132 H Lactic Acid Calcium 7.3 L Phosphorus 3.6 Magnesium 1.6 Total Bilirubin 0.5 AST 50 ALT 51 Alkaline Phosphatase 42 Troponin I < 0.0120 Total Protein 5.6 L Albumin 2.9 L Globulin 2.7 Albumin/Globulin Ratio 1.1 Assessment & Plan - Assessment and Plan (Free Text) Plan: Above patient seen and examined at bedside. Patient was acutely delirious post procedure in PACU, sitting up and verbalizing non-comprehensible words. Son at bedside. Patient was given precedex and low dose versed to help patient lay in bed flat. -Delirium: post anesthesia, continue to monitoro for safety -COPD: continue bronchodialtors as per pulmonary -acute lactic acidosis: post procedure, possible bloos loss anemia ( per OR ~ 300 ml of blood loss intra-op), continue IVF and PRBC trasnfusion to keep hemodynamic stability -PVD: s/p by-pass, will benefit from dual antiplatelets and statin (LFTs high, will hold off) -continue DVT ppx lovenox -continue pud ppx pepcid -neuro-vascular eval q1hrs and if decrease signs of circulation, call vascular team Patient will benefit from ICU level care cc time 45 minutes including time spent at bedside treating acute delirium - Date & Time Date: 03/14/18 Time: 19:00
[2018-03-14] MEDS: Sodium Chloride 0.9% 1,000 ML IV SCH (18:42)
--- NOTE | 2018-03-14 18:46 | RAD ---
Date of service: 03/14/2018 HISTORY: Aspiration pneumonia suspected. COMPARISON: 03/11/2018. FINDINGS: LUNGS: No active pulmonary disease. PLEURA: No significant pleural effusion identified, no pneumothorax apparent. CARDIOVASCULAR: No radiographic findings to suggest acute or significant cardiovascular disease. OSSEOUS STRUCTURES: No significant abnormalities. VISUALIZED UPPER ABDOMEN: Normal. OTHER FINDINGS: None. IMPRESSION: No active disease. No significant interval change compared to the prior examination(s).
--- NOTE | 2018-03-14 18:57 | OP ---
Copied To: Trace Fields Jr., MD Attending MD: Trace Fields Jr., MD PROCEDURE DATE: 03/14/2018 PREOPERATIVE DIAGNOSIS: Ischemic rest pain, left foot. POSTOPERATIVE DIAGNOSIS: Ischemic rest pain, left foot. PROCEDURE CARRIED OUT: [id number] femorofemoral bypass using 8 mm Dacron graft and left common femoral endarterectomy. SURGEON: Trace Fields Jr., MD INSTRUMENT LENS GENERATOR: Serina Lima DO and ANESTHESIOLOGIST: Trish Richmond MD INDICATIONS: Patient is an 87-year-old man who presented with acute limb ischemia on the left side. 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 OPERATIVE FINDINGS: A aiemq-ki-[id number] fem-fem bypass was carried out. 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 We brought this graft added on to the profunda. So, common femoral artery with profundoplasty as part of the placement of the graft on this. DESCRIPTION OF PROCEDURE: Patient was given general anesthesia and intravenous antibiotics were given. Standard skin prep was carried out including washing his groin. An oblique incision was made. The common, superficial, and profunda femoral arteries identified. The recipient artery was then first entered and an 8 mm graft was anastomosed. An endarterectomy had to be carried out because of the extensive atherosclerosis. After this had been done, we then brought the graft to a previously created subcutaneous tunnel and anastomosed with common femoral artery on the right side. At the end of the procedure, there was excellent flow. There were good Doppler signals in the foot. Blood loss for the procedure was 150 mL. Patient tolerated the procedure uneventfully. No blood transfusions were given. No drains were left. Hemostasis was good. OPERATION CARRIED OUT: Ewekx-dw-[id number] femorofemoral bypass using 8 mm Dacron graft and left common femoral endarterectomy. Trace Fields Jr., MD
[2018-03-14 19:15] LABS: LYMPHOCYTE 4 % (20-40); MONOCYTE 2 % (0-10); NEUTROPHIL 94 % (50-75); PLATELET ESTIMATE NORMAL (NORMAL); TOTAL CELLS COUNTED 100
--- NOTE | 2018-03-14 19:43 | CP.PCM.PN ---
Subjective - Date & Time of Evaluation Date of Evaluation: 03/14/18 Time of Evaluation: 11:00 - Subjective Subjective: clinically same Objective - Vital Signs/Intake and Output Vital Signs (last 24 hours): Temp Pulse Resp BP Pulse Ox 97.6 F 81 20 165/86 H 96 03/14/18 07:53 03/14/18 11:21 03/14/18 07:53 03/14/18 09:16 03/14/18 07:53 Intake and Output: 03/14/18 03/15/18 18:59 06:59 Intake Total 850 Output Total 100 Balance 750 - Medications Medications: Current Medications Albuterol/Ipratropium (Duoneb 3 Mg/0.5 Mg (3 Ml) Ud) 3 ml INH RQ6 [facility] Last Admin: 03/14/18 19:00 Dose: Not Given Aspirin (Aspirin Chewable) 81 mg PO DAILY [facility] Clopidogrel Bisulfate (Plavix) 75 mg PO DAILY [facility] Enoxaparin Sodium (Lovenox) 60 mg SC DAILY [facility] Last Admin: 03/14/18 09:16 Dose: Not Given Hydromorphone HCl (Dilaudid) 0.5 mg IVP Q4H PRN PRN Reason: Pain, severe (8-10) Vancomycin/Sodium Chloride (Vancomycin 1 Gm/Ns 200 Ml) 1 gm in 200 mls @ 166.7 mls/hr IVPB Q24H [facility] PRN Reason: Protocol Stop: 03/20/18 13:01 Nicardipine HCl 25 mg/ Sodium (Chloride) 250 mls @ 50 mls/hr IV .Q5H [facility]; 5 MG/ HR PRN Reason: Protocol Last Admin: 03/14/18 17:45 Dose: Not Given Dexmedetomidine HCl 200 mcg/ (Sodium Chloride) 50 mls @ 3.17 mls/hr IV TITR PRN ; Protocol; 0.2 MCG/KG/HR PRN Reason: Sedation Last Admin: 03/14/18 18:31 Dose: 0.19 mcg/kg/hr, 3.1 mls/hr Sodium Chloride (Sodium Chloride 0.9%) 1,000 mls @ 75 mls/hr IV .[id number] [facility] Last Admin: 03/14/18 18:42 Dose: 75 mls/hr Methylprednisolone (Solu-Medrol) 40 mg IV Q8H [facility] Last Admin: 03/14/18 18:41 Dose: 40 mg Ondansetron HCl (Zofran Inj) 4 mg IVP Q4 PRN PRN Reason: Nausea/Vomiting - Labs Labs: 03/14/18 17:08 03/14/18 06:54 PT 11.6 SECONDS (9.7-12.2) 03/11/18 13:38 INR 1.1 03/11/18 13:38 APTT 34 SECONDS (21-34) 03/11/18 13:38 - Constitutional Appears: Well - Head Exam Head Exam: ATRAUMATIC, NORMAL INSPECTION, NORMOCEPHALIC - Eye Exam Eye Exam: EOMI, Normal appearance, PERRL Pupil Exam: NORMAL ACCOMODATION, PERRL - ENT Exam ENT Exam: Mucous Membranes Moist, Normal Exam - Neck Exam Neck Exam: Full ROM, Normal Inspection. absent: Lymphadenopathy - Respiratory Exam Respiratory Exam: Decreased Breath Sounds - Cardiovascular Exam Cardiovascular Exam: REGULAR RHYTHM, +S1, +S2 - GI/Abdominal Exam GI & Abdominal Exam: Soft, Diminished Bowel Sounds - Rectal Exam Rectal Exam: Deferred
[2018-03-14 20:54] LABS: BASO % 0.1 % (0.0-2.0); HEMOGLOBIN 12.3 g/dL (12.0-18.0); LYMPH # 1.1 K/uL (1.0-4.3); LYMPH % 3.4 % (20.0-40.0); MEAN CELL VOLUME 95.7 fL (80.0-94.0); MEAN CORPUSCULAR HEMOGLOBIN 31.6 pg (27.0-31.0); MEAN PLATELET VOLUME 7.4 fL (7.2-11.7); MONO # 1.3 K/uL (0.0-0.8); MONO % 3.9 % (0.0-10.0); NEUT # 30.3 K/uL (1.8-7.0); NEUT % 92.6 % (50.0-75.0); RBC 3.89 Mil/uL (4.40-5.90); RED CELL DISTRIBUTION WIDTH 15.1 % (11.5-14.5); WHITE BLOOD COUNT 32.7 K/uL (4.8-10.8)
[2018-03-14 21:15] LABS: ALB/GLOB RATIO 1.1 (1.0-2.1); ALBUMIN 3.1 g/dL (3.5-5.0)
[2018-03-15] MEDS: MethylPREDNISolone 40 mg Vial IV SCH ×3 (01:56→17:10)
[2018-03-15] MEDS: Albuterol-Ipratrop 3 mg / 0.5 (3 ml) UD INH SCH ×3 (02:36→19:37)
[2018-03-15] MEDS: niCARdipine IV 25 MG in Sodium Chloride 0.9% 240 ML IV SCH ×2 (02:44→06:42)
[2018-03-15 06:34] LABS: BASO % 0.1 % (0.0-2.0); HEMOGLOBIN 11.6 g/dL (12.0-18.0); LYMPH # 0.5 K/uL (1.0-4.3); LYMPH % 2.2 % (20.0-40.0); MEAN CELL VOLUME 95.5 fL (80.0-94.0); MEAN CORPUSCULAR HEMOGLOBIN 31.5 pg (27.0-31.0); MEAN PLATELET VOLUME 7.7 fL (7.2-11.7); MONO # 0.9 K/uL (0.0-0.8); MONO % 3.6 % (0.0-10.0); NEUT # 22.9 K/uL (1.8-7.0); NEUT % 94.1 % (50.0-75.0); PLATELET COUNT 332 K/uL (130-400); RBC 3.68 Mil/uL (4.40-5.90); RED CELL DISTRIBUTION WIDTH 15.2 % (11.5-14.5); WHITE BLOOD COUNT 24.3 K/uL (4.8-10.8)
[2018-03-15 06:42] LABS: ALB/GLOB RATIO 1.1 (1.0-2.1); ALBUMIN 2.9 g/dL (3.5-5.0); ALT/SGPT 51 U/L (21-72); AST/SGOT 50 U/L (17-59); BLOOD UREA NITROGEN 23 mg/dL (9-20); CALCIUM 7.3 mg/dl (8.6-10.4); GFR AFRICAN-AMERICAN > 60; GFR NON-AFRICAN AMERICAN 57
[2018-03-15] MEDS: Sodium Chloride 0.9% 1,000 ML IV SCH ×4 (06:43→23:00)
[2018-03-15 08:16] LABS: LYMPHOCYTE 3 % (20-40); MONOCYTE 3 % (0-10); NEUTROPHIL 94 % (50-75); PLATELET ESTIMATE NORMAL (NORMAL); TOTAL CELLS COUNTED 100
[2018-03-15 08:17] LABS: ANISOCYTOSIS SLIGHT; LARGE PLATELETS PRESENT; TOXIC GRANULATION PRESENT
[2018-03-15] MEDS: Enoxaparin 60 mg Syringe SC SCH (09:20)
--- NOTE | 2018-03-15 09:20 | CP.PCM.PN ---
Subjective - Date & Time of Evaluation Date of Evaluation: 03/15/18 Time of Evaluation: 07:00 - Subjective Subjective: VASCULAR SURGERY PROGRESS NOTE FOR DR. GUZMÁN Patient seen and examined at bedside in the ICU. He was on Precedex yesterday evening/night for post op agitation but it has been stopped now. He reports pain in his left foot. Objective - Vital Signs/Intake and Output Vital Signs (last 24 hours): Temp Pulse Resp BP Pulse Ox 97.8 F 81 18 145/65 98 03/15/18 08:00 03/15/18 08:00 03/15/18 08:00 03/15/18 07:57 03/15/18 08:00 Intake and Output: 03/15/18 03/15/18 06:59 18:59 Intake Total 937.2 150 Output Total 440 60 Balance 497.2 90 - Medications Medications: Current Medications Albuterol/Ipratropium (Duoneb 3 Mg/0.5 Mg (3 Ml) Ud) 3 ml INH RQ6 [facility] Last Admin: 03/15/18 02:36 Dose: 3 ml Aspirin (Aspirin Chewable) 81 mg PO DAILY [facility] Clopidogrel Bisulfate (Plavix) 75 mg PO DAILY [facility] Enoxaparin Sodium (Lovenox) 60 mg SC DAILY [facility] Last Admin: 03/14/18 09:16 Dose: Not Given Hydromorphone HCl (Dilaudid) 0.5 mg IVP Q4H PRN PRN Reason: Pain, severe (8-10) Last Admin: 03/15/18 05:09 Dose: 0.5 mg Vancomycin/Sodium Chloride (Vancomycin 1 Gm/Ns 200 Ml) 1 gm in 200 mls @ 166.7 mls/hr IVPB Q24H [facility] PRN Reason: Protocol Stop: 03/20/18 13:01 Sodium Chloride (Sodium Chloride 0.9%) 1,000 mls @ 75 mls/hr IV .[id number] [facility] Last Admin: 03/15/18 07:57 Dose: 75 mls/hr Methylprednisolone (Solu-Medrol) 40 mg IV Q8H [facility] Last Admin: 03/15/18 01:56 Dose: 40 mg Ondansetron HCl (Zofran Inj) 4 mg IVP Q4 PRN PRN Reason: Nausea/Vomiting - Labs Labs: 03/15/18 04:00 03/15/18 06:17 PT 11.6 SECONDS (9.7-12.2) 03/11/18 13:38 INR 1.1 03/11/18 13:38 APTT 34 SECONDS (21-34) 03/11/18 13:38 - Constitutional Appears: Non-toxic, No Acute Distress, Chronically Ill - Head Exam Head Exam: ATRAUMATIC, NORMAL INSPECTION - Respiratory Exam Respiratory Exam: NORMAL BREATHING PATTERN. absent: Respiratory Distress - Cardiovascular Exam Cardiovascular Exam: +S1, +S2 - GI/Abdominal Exam GI & Abdominal Exam: Soft. absent: Distended, Firm, Guarding, Rigid, Tenderness , Rebound Additional comments: palpable pulse in fem-fem graft - Extremities Exam Additional comments: Bilateral pressure dressings in place Doppler signals to DP and PT bilaterally Both feet warm - Neurological Exam Neurological Exam: Alert, Awake, Oriented x3 - Psychiatric Exam Psychiatric exam: Normal Affect, Normal Mood - Skin Skin Exam: Dry, Normal Color, Warm Assessment and Plan - Assessment and Plan (Free Text) Assessment: 87yo M s/p Right to left fem-fem bypass with Dacron graft, left common femoral endarterectomy POD#1 - Doppler signals to bilateral DP and PT - Continue Lovenox, ASA, Plavix - One more dose of vancomycin - Advanced to D this AM - Discussed plan with Dr. Diamond Lima PGY-4
[2018-03-15 09:39] LABS: INR 1.1; PROTHROMBIN TIME 11.5 SECONDS (9.7-12.2)
--- NOTE | 2018-03-15 10:24 | CP.CCUPN ---
CCU Subjective - Physician Review Subjective (Free Text): PAtient awake, alert not agitated, speaking in comprehensible words. Patient's son at bedside noted remarkable improvement in mental status, (+)left lower leg pain 03/15/18 10:22 CCU Objective - Vital Signs / Intake & Output Vital Signs (Last 4 hours): Vital Signs Temp Pulse Resp BP Pulse Ox 03/15/18 08:00 97.8 F 81 18 98 03/15/18 07:57 145/65 03/15/18 06:57 77 15 117/42 L 95 Intake and Output (Last 8hrs): Intake & Output 03/14/18 03/15/18 03/15/18 22:59 06:59 14:59 Intake Total 1240.5 624.8 150 Output Total 495 280 60 Balance 745.5 344.8 90 Weight 133 lb 4.8 oz Intake: IV 850 18.6 Intake, IV Amount 390.5 606.2 150 Left Forearm 15.5 6.2 Right Forearm 375 600 150 Output: Urine 495 280 60 Urethral (Smith) 195 280 60 Emesis 0 0 Other: # Bowel Movements 0 0 - Physical Exam Head: Positive for: Atraumatic, Normocephalic Respiratory/Chest: Positive for: Clear to Auscultation, Good Air Exchange. Negative for: Respiratory Distress, Accessory Muscle Use, Wheezes, Rhonchi Abdomen: Positive for: Normal Bowel Sounds. Negative for: Tenderness, Distention, Peritoneal Signs Upper Extremity: Positive for: Normal Inspection Lower Extremity: Positive for: Capillary Refill < 2 s. Negative for: Edema, CALF TENDERNESS, Temperature Abnormalties Neurological: Positive for: CN II-XII Intact, Speech Normal Skin: Positive for: Warm - Medications Active Medications: Active Medications Generic Name Dose Route Start Last Admin Trade Name Freq PRN Reason Stop Dose Admin Albuterol/Ipratropium 3 ml 03/13/18 14:00 03/15/18 02:36 Duoneb 3 Mg/0.5 Mg (3 Ml) Ud INH 3 ml RQ6 [facility] Administration Aspirin 81 mg 03/15/18 10:00 03/15/18 09:19 Aspirin Chewable PO 81 mg DAILY [facility]IN Administration Clopidogrel Bisulfate 75 mg 03/15/18 10:00 03/15/18 09:19 Plavix PO 75 mg DAILY [facility] Administration Enoxaparin Sodium 60 mg 03/11/18 22:00 03/15/18 09:20 Lovenox SC 60 mg DAILY [facility] Administration Hydromorphone HCl 0.5 mg 03/14/18 16:18 03/15/18 05:09 Dilaudid IVP 0.5 mg Q4H PRN Administration Pain, severe (8-10) Vancomycin/Sodium Chloride 1 gm in 200 mls @ 166.7 mls/hr 03/15/18 13:00 Vancomycin 1 Gm/Ns 200 Ml IVPB 03/15/18 13:01 Q24H [facility] Protocol Sodium Chloride 1,000 mls @ 75 mls/hr 03/14/18 17:49 03/15/18 07:57 Sodium Chloride 0.9% IV 75 mls/hr .[id number] [facility] Administration Methylprednisolone 40 mg 03/13/18 17:00 03/15/18 09:20 Solu-Medrol IV 40 mg Q8H [facility] Administration Ondansetron HCl 4 mg 03/14/18 16:17 Zofran Inj IVP Q4 PRN Nausea/Vomiting Rosuvastatin Calcium 10 mg 03/15/18 22:00 Crestor PO HS G[facility]IN - Patient Studies Lab Studies: Lab Studies 03/15/18 03/15/18 03/15/18 Range/Units 09:27 09:15 06:17 WBC (4.8-10.8) K/uL RBC (4.40-5.90) Mil/uL Hgb (12.0-18.0) g/dL Hct (35.0-51.0) % MCV (80.0-94.0) fL MCH (27.0-31.0) pg MCHC (33.0-37.0) g/dL RDW (11.5-14.5) % Plt Count (130-400) K/uL MPV (7.2-11.7) fL Neut % (Auto) (50.0-75.0) % Lymph % (Auto) (20.0-40.0) % Glenn % (Auto) (0.0-10.0) % Eos % (Auto) (0.0-4.0) % Baso % (Auto) (0.0-2.0) % Neut # (Auto) (1.8-7.0) K/uL Lymph # (Auto) (1.0-4.3) K/uL Glenn # (Auto) (0.0-0.8) K/uL Eos # (Auto) (0.0-0.7) K/uL Baso # (Auto) (0.0-0.2) K/uL Neutrophils % (Manual) (50-75) % Lymphocytes % (Manual) (20-40) % Monocytes % (Manual) (0-10) % Toxic Granulation Platelet Estimate (NORMAL) Large Platelets Anisocytosis (manual) PT 11.5 (9.7-12.2) SECONDS INR 1.1 APTT 29 (21-34) SECONDS Sodium 139 (132-148) mmol/L Potassium 4.4 (3.6-5.2) mmol/L Chloride 106 (98-107) mmol/L Carbon Dioxide 21 L (22-30) mmol/L Anion Gap 16 (10-20) BUN 23 H (9-20) mg/dL Creatinine 1.2 (0.8-1.5) mg/dL Est GFR ( Amer) > 60 Est GFR (Non-Af Amer) 57 Random Glucose 132 H (75-110) mg/dL Lactic Acid (0.7-2.1) mmol/L Calcium 7.3 L (8.6-10.4) mg/dl Phosphorus 3.6 (2.5-4.5) mg/dL Magnesium 1.6 (1.6-2.3) mg/dL Total Bilirubin 0.5 (0.2-1.3) mg/dL AST 50 (17-59) U/L ALT 51 (21-72) U/L Alkaline Phosphatase 42 (38-126) U/L Troponin I < 0.0120 (0.00-0.120) ng/mL Total Protein 5.6 L (6.3-8.3) g/dL Albumin 2.9 L (3.5-5.0) g/dL Globulin 2.7 (2.2-3.9) gm/dL Albumin/Globulin Ratio 1.1 (1.0-2.1) 03/15/18 03/15/18 03/15/18 Range/Units 04:00 00:26 00:26 WBC 24.3 H (4.8-10.8) K/uL RBC 3.68 L (4.40-5.90) Mil/uL Hgb 11.6 L (12.0-18.0) g/dL Hct 35.2 (35.0-51.0) % MCV 95.5 H (80.0-94.0) fL MCH 31.5 H (27.0-31.0) pg MCHC 33.0 (33.0-37.0) g/dL RDW 15.2 H (11.5-14.5) % Plt Count 332 (130-400) K/uL MPV 7.7 (7.2-11.7) fL Neut % (Auto) 94.1 H (50.0-75.0) % Lymph % (Auto) 2.2 L (20.0-40.0) % Glenn % (Auto) 3.6 (0.0-10.0) % Eos % (Auto) 0.0 (0.0-4.0) % Baso % (Auto) 0.1 (0.0-2.0) % Neut # (Auto) 22.9 H (1.8-7.0) K/uL Lymph # (Auto) 0.5 L (1.0-4.3) K/uL Glenn # (Auto) 0.9 H (0.0-0.8) K/uL Eos # (Auto) 0.0 (0.0-0.7) K/uL Baso # (Auto) 0.0 (0.0-0.2) K/uL Neutrophils % (Manual) 94 H (50-75) % Lymphocytes % (Manual) 3 L (20-40) % Monocytes % (Manual) 3 (0-10) % Toxic Granulation Present Platelet Estimate Normal (NORMAL) Large Platelets Present Anisocytosis (manual) Slight PT (9.7-12.2) SECONDS INR APTT (21-34) SECONDS Sodium (132-148) mmol/L Potassium (3.6-5.2) mmol/L Chloride (98-107) mmol/L Carbon Dioxide (22-30) mmol/L Anion Gap (10-20) BUN (9-20) mg/dL Creatinine (0.8-1.5) mg/dL Est GFR ( Amer) Est GFR (Non-Af Amer) Random Glucose (75-110) mg/dL Lactic Acid 1.4 (0.7-2.1) mmol/L Calcium (8.6-10.4) mg/dl Phosphorus (2.5-4.5) mg/dL Magnesium (1.6-2.3) mg/dL Total Bilirubin (0.2-1.3) mg/dL AST (17-59) U/L ALT (21-72) U/L Alkaline Phosphatase (38-126) U/L Troponin I < 0.0120 (0.00-0.120) ng/mL Total Protein (6.3-8.3) g/dL Albumin (3.5-5.0) g/dL Globulin (2.2-3.9) gm/dL Albumin/Globulin Ratio (1.0-2.1) 03/14/18 03/14/18 03/14/18 Range/Units 20:55 20:49 20:49 WBC 32.7 H (4.8-10.8) K/uL RBC 3.89 L (4.40-5.90) Mil/uL Hgb 12.3 (12.0-18.0) g/dL Hct 37.2 (35.0-51.0) % MCV 95.7 H (80.0-94.0) fL MCH 31.6 H (27.0-31.0) pg MCHC 33.0 (33.0-37.0) g/dL RDW 15.1 H (11.5-14.5) % Plt Count 343 (130-400) K/uL MPV 7.4 (7.2-11.7) fL Neut % (Auto) 92.6 H (50.0-75.0) % Lymph % (Auto) 3.4 L (20.0-40.0) % Glenn % (Auto) 3.9 (0.0-10.0) % Eos % (Auto) 0.0 (0.0-4.0) % Baso % (Auto) 0.1 (0.0-2.0) % Neut # (Auto) 30.3 H (1.8-7.0) K/uL Lymph # (Auto) 1.1 (1.0-4.3) K/uL Glenn # (Auto) 1.3 H (0.0-0.8) K/uL Eos # (Auto) 0.0 (0.0-0.7) K/uL Baso # (Auto) 0.0 (0.0-0.2) K/uL Neutrophils % (Manual) (50-75) % Lymphocytes % (Manual) (20-40) % Monocytes % (Manual) (0-10) % Toxic Granulation Platelet Estimate (NORMAL) Large Platelets Anisocytosis (manual) PT (9.7-12.2) SECONDS INR APTT (21-34) SECONDS Sodium 136 (132-148) mmol/L Potassium 4.7 (3.6-5.2) mmol/L Chloride 104 (98-107) mmol/L Carbon Dioxide 21 L (22-30) mmol/L Anion Gap 16 (10-20) BUN 24 H (9-20) mg/dL Creatinine 1.4 (0.8-1.5) mg/dL Est GFR ( Amer) 58 Est GFR (Non-Af Amer) 48 Random Glucose 164 H (75-110) mg/dL Lactic Acid 2.0 (0.7-2.1) mmol/L Calcium 8.0 L (8.6-10.4) mg/dl Phosphorus 4.0 (2.5-4.5) mg/dL Magnesium 1.7 (1.6-2.3) mg/dL Total Bilirubin 0.4 (0.2-1.3) mg/dL AST 45 (17-59) U/L ALT 51 (21-72) U/L Alkaline Phosphatase 53 (38-126) U/L Troponin I (0.00-0.120) ng/mL Total Protein 5.9 L (6.3-8.3) g/dL Albumin 3.1 L (3.5-5.0) g/dL Globulin 2.8 (2.2-3.9) gm/dL Albumin/Globulin Ratio 1.1 (1.0-2.1) 03/14/18 03/14/18 03/14/18 Range/Units 17:08 17:08 17:08 WBC 22.7 H D (4.8-10.8) K/uL RBC 3.85 L (4.40-5.90) Mil/uL Hgb 12.4 (12.0-18.0) g/dL Hct 37.0 (35.0-51.0) % MCV 96.1 H D (80.0-94.0) fL MCH 32.1 H (27.0-31.0) pg MCHC 33.5 (33.0-37.0) g/dL RDW 15.3 H (11.5-14.5) % Plt Count 393 (130-400) K/uL MPV 7.2 (7.2-11.7) fL Neut % (Auto) 90.1 H (50.0-75.0) % Lymph % (Auto) 5.0 L (20.0-40.0) % Glenn % (Auto) 4.8 (0.0-10.0) % Eos % (Auto) 0.0 (0.0-4.0) % Baso % (Auto) 0.1 (0.0-2.0) % Neut # (Auto) 20.4 H (1.8-7.0) K/uL Lymph # (Auto) 1.1 (1.0-4.3) K/uL Glenn # (Auto) 1.1 H (0.0-0.8) K/uL Eos # (Auto) 0.0 (0.0-0.7) K/uL Baso # (Auto) 0.0 (0.0-0.2) K/uL Neutrophils % (Manual) 94 H (50-75) % Lymphocytes % (Manual) 4 L (20-40) % Monocytes % (Manual) 2 (0-10) % Toxic Granulation Platelet Estimate Normal (NORMAL) Large Platelets Anisocytosis (manual) PT (9.7-12.2) SECONDS INR APTT (21-34) SECONDS Sodium (132-148) mmol/L Potassium (3.6-5.2) mmol/L Chloride (98-107) mmol/L Carbon Dioxide (22-30) mmol/L Anion Gap (10-20) BUN (9-20) mg/dL Creatinine (0.8-1.5) mg/dL Est GFR ( Amer) Est GFR (Non-Af Amer) Random Glucose (75-110) mg/dL Lactic Acid 5.1 H* (0.7-2.1) mmol/L Calcium (8.6-10.4) mg/dl Phosphorus (2.5-4.5) mg/dL Magnesium (1.6-2.3) mg/dL Total Bilirubin (0.2-1.3) mg/dL AST (17-59) U/L ALT (21-72) U/L Alkaline Phosphatase (38-126) U/L Troponin I < 0.0120 (0.00-0.120) ng/mL Total Protein (6.3-8.3) g/dL Albumin (3.5-5.0) g/dL Globulin (2.2-3.9) gm/dL Albumin/Globulin Ratio (1.0-2.1) Laboratory Results - last 24 hr 03/14/18 03/14/18 03/14/18 17:08 17:08 17:08 WBC 22.7 H D RBC 3.85 L Hgb 12.4 Hct 37.0 MCV 96.1 H D MCH 32.1 H MCHC 33.5 RDW 15.3 H Plt Count 393 MPV 7.2 Neut % (Auto) 90.1 H Lymph % (Auto) 5.0 L Glenn % (Auto) 4.8 Eos % (Auto) 0.0 Baso % (Auto) 0.1 Neut # (Auto) 20.4 H Lymph # (Auto) 1.1 Glenn # (Auto) 1.1 H Eos # (Auto) 0.0 Baso # (Auto) 0.0 Neutrophils % (Manual) 94 H Lymphocytes % (Manual) 4 L Monocytes % (Manual) 2 Toxic Granulation Platelet Estimate Normal Large Platelets Anisocytosis (manual) PT INR APTT Sodium Potassium Chloride Carbon Dioxide Anion Gap BUN Creatinine Est GFR ( Amer) Est GFR (Non-Af Amer) Random Glucose Lactic Acid 5.1 H* Calcium Phosphorus Magnesium Total Bilirubin AST ALT Alkaline Phosphatase Troponin I < 0.0120 Total Protein Albumin Globulin Albumin/Globulin Ratio 03/14/18 03/14/18 03/14/18 20:49 20:49 20:55 WBC 32.7 H RBC 3.89 L Hgb 12.3 Hct 37.2 MCV 95.7 H MCH 31.6 H MCHC 33.0 RDW 15.1 H Plt Count 343 MPV 7.4 Neut % (Auto) 92.6 H Lymph % (Auto) 3.4 L Glenn % (Auto) 3.9 Eos % (Auto) 0.0 Baso % (Auto) 0.1 Neut # (Auto) 30.3 H Lymph # (Auto) 1.1 Glenn # (Auto) 1.3 H Eos # (Auto) 0.0 Baso # (Auto) 0.0 Neutrophils % (Manual) Lymphocytes % (Manual) Monocytes % (Manual) Toxic Granulation Platelet Estimate Large Platelets Anisocytosis (manual) PT INR APTT Sodium 136 Potassium 4.7 Chloride 104 Carbon Dioxide 21 L Anion Gap 16 BUN 24 H Creatinine 1.4 Est GFR ( Amer) 58 Est GFR (Non-Af Amer) 48 Random Glucose 164 H Lactic Acid 2.0 Calcium 8.0 L Phosphorus 4.0 Magnesium 1.7 Total Bilirubin 0.4 AST 45 ALT 51 Alkaline Phosphatase 53 Troponin I Total Protein 5.9 L Albumin 3.1 L Globulin 2.8 Albumin/Globulin Ratio 1.1 03/15/18 03/15/18 03/15/18 00:26 00:26 04:00 WBC 24.3 H RBC 3.68 L Hgb 11.6 L Hct 35.2 MCV 95.5 H MCH 31.5 H MCHC 33.0 RDW 15.2 H Plt Count 332 MPV 7.7 Neut % (Auto) 94.1 H Lymph % (Auto) 2.2 L Glenn % (Auto) 3.6 Eos % (Auto) 0.0 Baso % (Auto) 0.1 Neut # (Auto) 22.9 H Lymph # (Auto) 0.5 L Glenn # (Auto) 0.9 H Eos # (Auto) 0.0 Baso # (Auto) 0.0 Neutrophils % (Manual) 94 H Lymphocytes % (Manual) 3 L Monocytes % (Manual) 3 Toxic Granulation Present Platelet Estimate Normal Large Platelets Present Anisocytosis (manual) Slight PT INR APTT Sodium Potassium Chloride Carbon Dioxide Anion Gap BUN Creatinine Est GFR ( Amer) Est GFR (Non-Af Amer) Random Glucose Lactic Acid 1.4 Calcium Phosphorus Magnesium Total Bilirubin AST ALT Alkaline Phosphatase Troponin I < 0.0120 Total Protein Albumin Globulin Albumin/Globulin Ratio 03/15/18 03/15/18 03/15/18 06:17 09:15 09:27 WBC RBC Hgb Hct MCV MCH MCHC RDW Plt Count MPV Neut % (Auto) Lymph % (Auto) Glenn % (Auto) Eos % (Auto) Baso % (Auto) Neut # (Auto) Lymph # (Auto) Glenn # (Auto) Eos # (Auto) Baso # (Auto) Neutrophils % (Manual) Lymphocytes % (Manual) Monocytes % (Manual) Toxic Granulation Platelet Estimate Large Platelets Anisocytosis (manual) PT 11.5 INR 1.1 APTT 29 Sodium 139 Potassium 4.4 Chloride 106 Carbon Dioxide 21 L Anion Gap 16 BUN 23 H Creatinine 1.2 Est GFR ( Amer) > 60 Est GFR (Non-Af Amer) 57 Random Glucose 132 H Lactic Acid Calcium 7.3 L Phosphorus 3.6 Magnesium 1.6 Total Bilirubin 0.5 AST 50 ALT 51 Alkaline Phosphatase 42 Troponin I < 0.0120 Total Protein 5.6 L Albumin 2.9 L Globulin 2.7 Albumin/Globulin Ratio 1.1 Fingerstick Blood Sugar Results: 159 Critical Care Progress Note - Nutrition Nutrition: Nutrition Category Date Time Status Heart Healthy Diet [DIET] Diets 03/15/18 Breakfast Active Assessment/Plan - Assessment and Plan (Free Text) Assessment: 87 y/o male with PMHx of COPD, HTN, diverticulosis who presented to the ED on 03/12/18 with left lower extremity pain s/p fem-fem bypass by vascular POD #2 -Delirium :resolved -d/c precedex - continue neurovascular checks q1h -HTN: BP controlled - maintain MAP>65mmHg - keep SBP between 120 and 140 - d/c Nicardipine gtt -COPD: - Duonebs Q6H - maintain spo2>92% - bpap/cpap prn -continue rx as per -consider d/c'ing gilda -ANemia: will transfuse blood to keep hemodynamic stability -continue DVT ppx lovenox -continue pud ppx pepcid -neuro-vascular eval q1hrs and if decrease signs of circulation, call vascular team -Advance diet as per vascular team - Date & Time Date: 03/15/18 Time: 10:38
[2018-03-15] MEDS ORDERED: Vancomycin 1 gm/NS 200 ml 1 GM/200 ML BAG IVPB SCH (13:00)
--- NOTE | 2018-03-15 16:27 | CP.PCM.PN ---
Subjective - Date & Time of Evaluation Date of Evaluation: 03/15/18 Time of Evaluation: 11:40 - Subjective Subjective: clinically same Objective - Vital Signs/Intake and Output Vital Signs (last 24 hours): Temp Pulse Resp BP Pulse Ox 98.3 F 102 H 29 H 157/66 H 93 L 03/15/18 12:00 03/15/18 15:33 03/15/18 15:33 03/15/18 15:33 03/15/18 15:33 Intake and Output: 03/15/18 03/15/18 06:59 18:59 Intake Total 937.2 1453 Output Total 440 290 Balance 497.2 1163 - Medications Medications: Current Medications Albuterol/Ipratropium (Duoneb 3 Mg/0.5 Mg (3 Ml) Ud) 3 ml INH RQ6 [facility] Last Admin: 03/15/18 07:40 Dose: 3 ml Aspirin (Aspirin Chewable) 81 mg PO DAILY [facility] Last Admin: 03/15/18 09:19 Dose: 81 mg Clopidogrel Bisulfate (Plavix) 75 mg PO DAILY [facility] Last Admin: 03/15/18 09:19 Dose: 75 mg Enoxaparin Sodium (Lovenox) 60 mg SC DAILY [facility] Last Admin: 03/15/18 09:20 Dose: 60 mg Sodium Chloride (Sodium Chloride 0.9%) 1,000 mls @ 75 mls/hr IV .[id number] [facility] Last Admin: 03/15/18 07:57 Dose: 75 mls/hr Methylprednisolone (Solu-Medrol) 40 mg IV Q8H [facility] Last Admin: 03/15/18 09:20 Dose: 40 mg Ondansetron HCl (Zofran Inj) 4 mg IVP Q4 PRN PRN Reason: Nausea/Vomiting Rosuvastatin Calcium (Crestor) 10 mg PO HS [facility] - Labs Labs: 03/15/18 04:00 03/15/18 06:17 PT 11.5 SECONDS (9.7-12.2) 03/15/18 09:15 INR 1.1 03/15/18 09:15 APTT 29 SECONDS (21-34) 03/15/18 09:15 - Constitutional Appears: Well - Head Exam Head Exam: ATRAUMATIC, NORMAL INSPECTION, NORMOCEPHALIC - Eye Exam Eye Exam: EOMI, Normal appearance, PERRL Pupil Exam: NORMAL ACCOMODATION, PERRL - ENT Exam ENT Exam: Mucous Membranes Moist, Normal Exam - Neck Exam Neck Exam: Full ROM, Normal Inspection. absent: Lymphadenopathy - Respiratory Exam Respiratory Exam: Decreased Breath Sounds - Cardiovascular Exam Cardiovascular Exam: REGULAR RHYTHM, +S1, +S2 - GI/Abdominal Exam GI & Abdominal Exam: Soft, Diminished Bowel Sounds - Rectal Exam Rectal Exam: Deferred
[2018-03-15] MEDS ORDERED: Labetalol 5mg/ml (4ml) IVP STA (19:08)
[2018-03-15] MEDS ORDERED: niCARdipine IV 25 MG in Sodium Chloride 0.9% 240 ML IV SCH (19:15)
[2018-03-15] MEDS ORDERED: HYDROmorphone 0.5 mg/0.5 ml ISec IVP STA (20:06)
--- NOTE | 2018-03-15 21:16 | CP.PCM.PN ---
Subjective - Date & Time of Evaluation Date of Evaluation: 03/15/18 Time of Evaluation: 11:00 - Subjective Subjective: Post op Day #1. No major complaints. pain controlled Objective - Vital Signs/Intake and Output Vital Signs (last 24 hours): Temp Pulse Resp BP Pulse Ox 98.2 F 97 H 28 H 168/82 H 97 03/15/18 16:00 03/15/18 19:45 03/15/18 19:45 03/15/18 19:45 03/15/18 19:45 Intake and Output: 03/15/18 03/16/18 18:59 06:59 Intake Total 1453 Output Total 290 Balance 1163 - Medications Medications: Current Medications Albuterol/Ipratropium (Duoneb 3 Mg/0.5 Mg (3 Ml) Ud) 3 ml INH RQ6 [facility] Last Admin: 03/15/18 19:37 Dose: 3 ml Aspirin (Aspirin Chewable) 81 mg PO DAILY [facility] Last Admin: 03/15/18 09:19 Dose: 81 mg Clopidogrel Bisulfate (Plavix) 75 mg PO DAILY [facility] Last Admin: 03/15/18 09:19 Dose: 75 mg Enoxaparin Sodium (Lovenox) 60 mg SC DAILY [facility] Last Admin: 03/15/18 09:20 Dose: 60 mg Hydralazine HCl (Apresoline) 10 mg IVP Q6H PRN PRN Reason: SBP Sodium Chloride (Sodium Chloride 0.9%) 1,000 mls @ 75 mls/hr IV .[id number] [facility] Last Admin: 03/15/18 07:57 Dose: 75 mls/hr Nicardipine HCl 25 mg/ Sodium (Chloride) 250 mls @ 50 mls/hr IV .Q5H [facility]; 5 MG/ HR PRN Reason: Protocol Last Admin: 03/15/18 19:45 Dose: Not Given Methylprednisolone (Solu-Medrol) 40 mg IV Q8H [facility] Last Admin: 03/15/18 17:10 Dose: 40 mg Ondansetron HCl (Zofran Inj) 4 mg IVP Q4 PRN PRN Reason: Nausea/Vomiting Rosuvastatin Calcium (Crestor) 10 mg PO HS [facility] - Labs Labs: 03/15/18 04:00 03/15/18 06:17 PT 11.5 SECONDS (9.7-12.2) 03/15/18 09:15 INR 1.1 03/15/18 09:15 APTT 29 SECONDS (21-34) 03/15/18 09:15 - Constitutional Appears: Well, Non-toxic - Respiratory Exam Respiratory Exam: Clear to Ausculation Bilateral, NORMAL BREATHING PATTERN - Cardiovascular Exam Cardiovascular Exam: REGULAR RHYTHM, JVD, RRR, +S1, +S2 Additional comments: Post op dressing c/d/I - GI/Abdominal Exam GI & Abdominal Exam: Normal Bowel Sounds. 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 HTN is chronic and accelerated on cardene gtt, hydralazine Dyslipidemia is chronic and stable on crestor
--- NOTE | 2018-03-15 21:50 | CP.PCM.PN ---
Subjective - Date & Time of Evaluation Date of Evaluation: 03/15/18 Time of Evaluation: 19:20 - Subjective Subjective: Patient seen and examined s/p Right to left fem-fem bypass with Dacron graft, left common femoral endarterectomy No shortness of breath Afebrile Objective - Vital Signs/Intake and Output Vital Signs (last 24 hours): Temp Pulse Resp BP Pulse Ox 98.2 F 92 H 21 166/63 H 93 L 03/15/18 20:00 03/15/18 21:00 03/15/18 21:00 03/15/18 20:56 03/15/18 21:00 Intake and Output: 03/15/18 03/16/18 18:59 06:59 Intake Total 1453 225 Output Total 290 205 Balance 1163 20 - Medications Medications: Current Medications Albuterol/Ipratropium (Duoneb 3 Mg/0.5 Mg (3 Ml) Ud) 3 ml INH RQ6 [facility] Last Admin: 03/15/18 19:37 Dose: 3 ml Aspirin (Aspirin Chewable) 81 mg PO DAILY [facility] Last Admin: 03/15/18 09:19 Dose: 81 mg Clopidogrel Bisulfate (Plavix) 75 mg PO DAILY [facility] Last Admin: 03/15/18 09:19 Dose: 75 mg Enoxaparin Sodium (Lovenox) 60 mg SC DAILY [facility] Last Admin: 03/15/18 09:20 Dose: 60 mg Hydralazine HCl (Apresoline) 10 mg IVP Q6H PRN PRN Reason: SBP Sodium Chloride (Sodium Chloride 0.9%) 1,000 mls @ 75 mls/hr IV .[id number] [facility] Last Admin: 03/15/18 21:16 Dose: Not Given Nicardipine HCl 25 mg/ Sodium (Chloride) 250 mls @ 50 mls/hr IV .Q5H [facility]; 5 MG/ HR PRN Reason: Protocol Last Admin: 03/15/18 19:45 Dose: Not Given Methylprednisolone (Solu-Medrol) 40 mg IV Q8H [facility] Last Admin: 03/15/18 17:10 Dose: 40 mg Ondansetron HCl (Zofran Inj) 4 mg IVP Q4 PRN PRN Reason: Nausea/Vomiting Rosuvastatin Calcium (Crestor) 10 mg PO HS [facility] - Labs Labs: 03/15/18 04:00 03/15/18 06:17 PT 11.5 SECONDS (9.7-12.2) 03/15/18 09:15 INR 1.1 03/15/18 09:15 APTT 29 SECONDS (21-34) 03/15/18 09:15 - Head Exam Head Exam: ATRAUMATIC, NORMOCEPHALIC - ENT Exam ENT Exam: Mucous Membranes Moist - Neck Exam Neck Exam: Normal Inspection - Respiratory Exam Respiratory Exam: Clear to Ausculation Bilateral - Cardiovascular Exam Cardiovascular Exam: REGULAR RHYTHM - GI/Abdominal Exam GI & Abdominal Exam: Soft Assessment and Plan (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
[2018-03-16] MEDS: MethylPREDNISolone 40 mg Vial IV SCH (01:00)
[2018-03-16] MEDS: Albuterol-Ipratrop 3 mg / 0.5 (3 ml) UD INH SCH ×2 (02:31→07:40)
--- NOTE | 2018-03-16 06:05 | CP.PCM.PN ---
Objective - Vital Signs/Intake and Output Vital Signs (last 24 hours): Temp Pulse Resp BP Pulse Ox 98.2 F 83 18 159/78 H 91 L 03/15/18 20:00 03/15/18 22:56 03/15/18 22:56 03/15/18 22:56 03/15/18 22:56 Intake and Output: 03/15/18 03/16/18 18:59 06:59 Intake Total 1453 825 Output Total 290 1070 Balance 1163 -245 - Medications Medications: Current Medications Albuterol/Ipratropium (Duoneb 3 Mg/0.5 Mg (3 Ml) Ud) 3 ml INH RQ6 [facility] Last Admin: 03/16/18 02:31 Dose: Not Given Aspirin (Aspirin Chewable) 81 mg PO DAILY [facility] Last Admin: 03/15/18 09:19 Dose: 81 mg Clopidogrel Bisulfate (Plavix) 75 mg PO DAILY [facility] Last Admin: 03/15/18 09:19 Dose: 75 mg Enoxaparin Sodium (Lovenox) 60 mg SC DAILY [facility] Last Admin: 03/15/18 09:20 Dose: 60 mg Hydralazine HCl (Apresoline) 10 mg IVP Q6H PRN PRN Reason: SBP Sodium Chloride (Sodium Chloride 0.9%) 1,000 mls @ 75 mls/hr IV .[id number] [facility] Last Admin: 03/15/18 23:00 Dose: 75 mls/hr Nicardipine HCl 25 mg/ Sodium (Chloride) 250 mls @ 50 mls/hr IV .Q5H [facility]; 5 MG/ HR PRN Reason: Protocol Last Admin: 03/15/18 19:45 Dose: Not Given Methylprednisolone (Solu-Medrol) 40 mg IV Q8H [facility] Last Admin: 03/16/18 01:00 Dose: 40 mg Ondansetron HCl (Zofran Inj) 4 mg IVP Q4 PRN PRN Reason: Nausea/Vomiting Rosuvastatin Calcium (Crestor) 10 mg PO HS [facility] Last Admin: 03/15/18 21:55 Dose: 10 mg - Labs Labs: 03/15/18 04:00 03/15/18 06:17 PT 11.5 SECONDS (9.7-12.2) 03/15/18 09:15 INR 1.1 03/15/18 09:15 APTT 29 SECONDS (21-34) 03/15/18 09:15 Assessment and Plan - Assessment and Plan (Free Text) Assessment: 87 year old man with critical limb ischemia s/p Fem Fem bypass 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
[2018-03-16 06:46] LABS: HEMOGLOBIN 11.2 g/dL (12.0-18.0); LYMPH # 0.5 K/uL (1.0-4.3); LYMPH % 2.8 % (20.0-40.0); MEAN CELL VOLUME 95.2 fL (80.0-94.0); MEAN CORPUSCULAR HEMOGLOBIN 31.1 pg (27.0-31.0); MEAN CORPUSCULAR HGB CONC 32.7 g/dL (33.0-37.0); MEAN PLATELET VOLUME 7.6 fL (7.2-11.7); MONO # 0.9 K/uL (0.0-0.8); MONO % 4.7 % (0.0-10.0); NEUT # 16.8 K/uL (1.8-7.0); NEUT % 92.5 % (50.0-75.0); PLATELET COUNT 348 K/uL (130-400); RED CELL DISTRIBUTION WIDTH 15.2 % (11.5-14.5); WHITE BLOOD COUNT 18.2 K/uL (4.8-10.8)
[2018-03-16 06:47] LABS: PROTHROMBIN TIME 10.8 SECONDS (9.7-12.2)
[2018-03-16 06:51] LABS: ALB/GLOB RATIO 1.2 (1.0-2.1); ALBUMIN 3.3 g/dL (3.5-5.0); ALT/SGPT 53 U/L (21-72); AST/SGOT 42 U/L (17-59); BLOOD UREA NITROGEN 21 mg/dL (9-20); CALCIUM 7.9 mg/dl (8.6-10.4); GFR AFRICAN-AMERICAN > 60; GFR NON-AFRICAN AMERICAN > 60
--- NOTE | 2018-03-16 08:00 | CP.PCM.PN ---
Subjective - Date & Time of Evaluation Date of Evaluation: 03/16/18 Time of Evaluation: 07:30 - Subjective Subjective: vascular surgery progress note for Dr. Fields Patient seen and examined this AM at bedside. Patient states that his foot is feeling much better and he would like to go home. He otherwise denies f/c/n/v abdominal pain. He is tolerating his diet well. Objective - Vital Signs/Intake and Output Vital Signs (last 24 hours): Temp Pulse Resp BP Pulse Ox 98.5 F 109 H 23 166/73 H 94 L 03/16/18 00:00 03/16/18 07:00 03/16/18 07:00 03/16/18 06:56 03/16/18 04:00 Intake and Output: 03/16/18 03/16/18 06:59 18:59 Intake Total 825 Output Total 1270 Balance -445 - Medications Medications: Current Medications Albuterol/Ipratropium (Duoneb 3 Mg/0.5 Mg (3 Ml) Ud) 3 ml INH RQ6 [facility] Last Admin: 03/16/18 02:31 Dose: Not Given Aspirin (Aspirin Chewable) 81 mg PO DAILY [facility] Last Admin: 03/15/18 09:19 Dose: 81 mg Clopidogrel Bisulfate (Plavix) 75 mg PO DAILY [facility] Last Admin: 03/15/18 09:19 Dose: 75 mg Enoxaparin Sodium (Lovenox) 60 mg SC DAILY [facility] Last Admin: 03/15/18 09:20 Dose: 60 mg Hydralazine HCl (Apresoline) 10 mg IVP Q6H PRN PRN Reason: SBP Last Admin: 03/16/18 06:34 Dose: 10 mg Sodium Chloride (Sodium Chloride 0.9%) 1,000 mls @ 75 mls/hr IV .[id number] [facility] Last Admin: 03/15/18 23:00 Dose: 75 mls/hr Nicardipine HCl 25 mg/ Sodium (Chloride) 250 mls @ 50 mls/hr IV .Q5H [facility]; 5 MG/ HR PRN Reason: Protocol Last Admin: 03/15/18 19:45 Dose: Not Given Sodium Phosphate 15 mmole/ (Dextrose) 255 mls @ 42.5 mls/hr IV .Q6H [facility] Stop: 03/16/18 20:14 Methylprednisolone (Solu-Medrol) 40 mg IV Q8H [facility] Last Admin: 03/16/18 01:00 Dose: 40 mg Ondansetron HCl (Zofran Inj) 4 mg IVP Q4 PRN PRN Reason: Nausea/Vomiting Rosuvastatin Calcium (Crestor) 10 mg PO HS [facility] Last Admin: 03/15/18 21:55 Dose: 10 mg - Labs Labs: 03/16/18 06:26 03/16/18 06:26 PT 10.8 SECONDS (9.7-12.2) 03/16/18 06:00 INR 1.0 03/16/18 06:00 APTT 28 SECONDS (21-34) 03/16/18 06:00 - Constitutional Appears: Well, Non-toxic, No Acute Distress - ENT Exam ENT Exam: Mucous Membranes Moist - Respiratory Exam Respiratory Exam: NORMAL BREATHING PATTERN - Cardiovascular Exam Cardiovascular Exam: +S1, +S2 - GI/Abdominal Exam GI & Abdominal Exam: Soft. absent: Distended, Firm, Guarding, Rigid, Tenderness Additional comments: inguinal incisions are cdi, small area of ecchymosis extending from the right inguinal area, palpable suprapubic pulse over graft site, palpable femoral pulses bilaterally - Extremities Exam Extremities Exam: Tenderness. absent: Calf Tenderness, Pedal Edema Additional comments: feet appear well perfused bilaterally, DP and PT pulses dopplerable bilaterally , signs of cyanosis are markedly improved from preoperative assessment, mild edema right foot, sensory and motor ability intact in feet bilaterally - Neurological Exam Neurological Exam: Alert, Awake, Oriented x3 - Psychiatric Exam Psychiatric exam: Agitated, Anxious - Skin Skin Exam: Dry, Intact, Normal Color, Warm Assessment and Plan - Assessment and Plan (Free Text) Assessment: 87 yr old M POD 2 s/p right to left fem fem bypass, recovering well Plan: - patient cleared for transfer out of ICU if bed available - continue neurovascular checks - encourage movement of foot - recommend rehab prior to returning home - will discuss plan with Dr. Soriano, all further recs per him Sally Isaacs, PGY 1
[2018-03-16 08:22] LABS: LYMPHOCYTE 3 % (20-40); MONOCYTE 4 % (0-10); NEUTROPHIL 93 % (50-75); PLATELET ESTIMATE NORMAL (NORMAL); TOTAL CELLS COUNTED 100
[2018-03-16 08:23] LABS: ANISOCYTOSIS SLIGHT; LARGE PLATELETS PRESENT
[2018-03-16] MEDS ORDERED: Sodium Phosphate 15 MMOLE in Dextrose 5% In Water 250 ML IV SCH (08:30)
[2018-03-16] MEDS: Verapamil 120 mg ER Tab PO SCH (09:31)
--- NOTE | 2018-03-16 12:02 | CP.CCUPN ---
CCU Subjective - Physician Review Subjective (Free Text): PAtient awake, alert not agitated, speaking in comprehensible words. Patient's son at bedside noted remarkable improvement in mental status, (+)left lower leg pain 03/15/18 10:22 CCU Objective - Vital Signs / Intake & Output Vital Signs (Last 4 hours): Vital Signs Temp Pulse Resp BP Pulse Ox 03/16/18 09:00 106 H 32 H 03/16/18 08:57 124 H 28 H 126/53 L 03/16/18 08:00 97.8 F 142 H 23 97 Intake and Output (Last 8hrs): Intake & Output 03/15/18 03/16/18 03/16/18 22:59 06:59 14:59 Intake Total 600 600 506 Output Total 840 945 40 Balance -240 -345 466 Weight 134 lb 0.125 oz Intake: Intake, IV Amount 600 600 206 Right Forearm 600 600 206 Oral 300 Output: Urine 840 945 40 Urethral (Vo) 840 945 40 Urine, Voided 0 Emesis 0 Other: # Bowel Movements 0 - Physical Exam Head: Positive for: Atraumatic, Normocephalic Respiratory/Chest: Positive for: Clear to Auscultation, Good Air Exchange. Negative for: Respiratory Distress, Accessory Muscle Use, Wheezes, Rhonchi Abdomen: Positive for: Normal Bowel Sounds. Negative for: Tenderness, Distention, Peritoneal Signs Upper Extremity: Positive for: Normal Inspection Lower Extremity: Positive for: Capillary Refill < 2 s. Negative for: Edema, CALF TENDERNESS, Temperature Abnormalties Neurological: Positive for: CN II-XII Intact, Speech Normal Skin: Positive for: Warm - Medications Active Medications: Active Medications Generic Name Dose Route Start Last Admin Trade Name Freq PRN Reason Stop Dose Admin Aspirin 81 mg 03/15/18 10:00 03/16/18 09:20 Aspirin Chewable PO 81 mg DAILY [facility] Administration Clopidogrel Bisulfate 75 mg 03/15/18 10:00 03/16/18 09:20 Plavix PO 75 mg DAILY [facility] Administration Heparin Sodium (Porcine) 5,000 units 03/16/18 10:00 03/16/18 09:23 Heparin SC 5,000 units Q12 [facility] Administration Hydralazine HCl 10 mg 03/15/18 19:00 03/16/18 06:34 Apresoline IVP 10 mg Q6H PRN Administration SBP Hydralazine HCl 25 mg 03/16/18 10:00 03/16/18 09:20 Apresoline PO 25 mg QID [facility] Administration Sodium Phosphate 15 mmole/ 255 mls @ 42.5 mls/hr 03/16/18 08:30 03/16/18 09: 10 Dextrose IV 03/16/18 20:14 42.5 mls/hr .Q6H [facility] Administration Ipratropium [place] 0.5 mg 03/16/18 11:35 Atrovent IH RQ6 PRN Shortness of Breath Rosuvastatin Calcium 10 mg 03/15/18 22:00 03/15/18 21:55 Crestor PO 10 mg HS [facility] Administration Verapamil HCl 120 mg 03/16/18 10:00 03/16/18 09:31 Calan Sr Tab PO 120 mg DAILY [facility] Administration Verapamil HCl 5 mg 03/16/18 11:34 Verapamil Inj IVP Q4H PRN Heart rate - Patient Studies Lab Studies: Microbiology Studies 03/14/18 21:23 MRSA Culture (Admit) - Final Nose MRSA NOT DETECTED 03/14/18 19:45 Blood Culture - Preliminary Blood NO GROWTH AFTER 24 HOURS 03/14/18 20:15 Blood Culture - Preliminary Blood NO GROWTH AFTER 24 HOURS Lab Studies 03/16/18 03/16/18 03/16/18 Range/Units 06:26 06:26 06:00 WBC 18.2 H (4.8-10.8) K/uL RBC 3.60 L (4.40-5.90) Mil/uL Hgb 11.2 L (12.0-18.0) g/dL Hct 34.3 L (35.0-51.0) % MCV 95.2 H (80.0-94.0) fL MCH 31.1 H (27.0-31.0) pg MCHC 32.7 L (33.0-37.0) g/dL RDW 15.2 H (11.5-14.5) % Plt Count 348 (130-400) K/uL MPV 7.6 (7.2-11.7) fL Neut % (Auto) 92.5 H (50.0-75.0) % Lymph % (Auto) 2.8 L (20.0-40.0) % [place] % (Auto) 4.7 (0.0-10.0) % Eos % (Auto) 0.0 (0.0-4.0) % Baso % (Auto) 0.0 (0.0-2.0) % Neut # (Auto) 16.8 H (1.8-7.0) K/uL Lymph # (Auto) 0.5 L (1.0-4.3) K/uL [place] # (Auto) 0.9 H (0.0-0.8) K/uL Eos # (Auto) 0.0 (0.0-0.7) K/uL Baso # (Auto) 0.0 (0.0-0.2) K/uL Neutrophils % (Manual) 93 H (50-75) % Lymphocytes % (Manual) 3 L (20-40) % Monocytes % (Manual) 4 (0-10) % Platelet Estimate Normal (NORMAL) Large Platelets Present Anisocytosis (manual) Slight PT 10.8 (9.7-12.2) SECONDS INR 1.0 APTT 28 (21-34) SECONDS Sodium 141 (132-148) mmol/L Potassium 4.1 (3.6-5.2) mmol/L Chloride 107 (98-107) mmol/L Carbon Dioxide 24 (22-30) mmol/L Anion Gap 14 (10-20) BUN 21 H (9-20) mg/dL Creatinine 1.1 (0.8-1.5) mg/dL Est GFR ( Amer) > 60 Est GFR (Non-Af Amer) > 60 Random Glucose 133 H (75-110) mg/dL Calcium 7.9 L (8.6-10.4) mg/dl Phosphorus 2.0 L (2.5-4.5) mg/dL Magnesium 1.8 (1.6-2.3) mg/dL Total Bilirubin 0.3 (0.2-1.3) mg/dL AST 42 (17-59) U/L ALT 53 (21-72) U/L Alkaline Phosphatase 47 (38-126) U/L Total Protein 6.0 L (6.3-8.3) g/dL Albumin 3.3 L (3.5-5.0) g/dL Globulin 2.7 (2.2-3.9) gm/dL Albumin/Globulin Ratio 1.2 (1.0-2.1) Laboratory Results - last 24 hr 03/16/18 03/16/18 03/16/18 06:00 06:26 06:26 WBC 18.2 H RBC 3.60 L Hgb 11.2 L Hct 34.3 L MCV 95.2 H MCH 31.1 H MCHC 32.7 L RDW 15.2 H Plt Count 348 MPV 7.6 Neut % (Auto) 92.5 H Lymph % (Auto) 2.8 L [place] % (Auto) 4.7 Eos % (Auto) 0.0 Baso % (Auto) 0.0 Neut # (Auto) 16.8 H Lymph # (Auto) 0.5 L [place] # (Auto) 0.9 H Eos # (Auto) 0.0 Baso # (Auto) 0.0 Neutrophils % (Manual) 93 H Lymphocytes % (Manual) 3 L Monocytes % (Manual) 4 Platelet Estimate Normal Large Platelets Present Anisocytosis (manual) Slight PT 10.8 INR 1.0 APTT 28 Sodium 141 Potassium 4.1 Chloride 107 Carbon Dioxide 24 Anion Gap 14 BUN 21 H Creatinine 1.1 Est GFR ( Amer) > 60 Est GFR (Non-Af Amer) > 60 Random Glucose 133 H Calcium 7.9 L Phosphorus 2.0 L Magnesium 1.8 Total Bilirubin 0.3 AST 42 ALT 53 Alkaline Phosphatase 47 Total Protein 6.0 L Albumin 3.3 L Globulin 2.7 Albumin/Globulin Ratio 1.2 EKG/Cardiology Studies: Cardiology / EKG Studies 03/16/18 11:58 EKG [ELECTROCARDIOGRAM] Stat Comment: Mode Of Transportation: BED Reason For Exam: r/o atrial fib Fingerstick Blood Sugar Results: 147 Critical Care Progress Note - Nutrition Nutrition: Nutrition Category Date Time Status Heart Healthy Diet [DIET] Diets 03/15/18 Breakfast Active Assessment/Plan - Assessment and Plan (Free Text) Assessment: 87 y/o male with PMHx of COPD, HTN, diverticulosis who presented to the ED on 03/12/18 with left lower extremity pain s/p fem-fem bypass by vascular POD #3 -Delirium :resolved -NEW ONSET A-fib: will start Verapamil oral and obtain cardiology input regarding CHADS vasc score >2 regaring AC with posisble NOAC -HTN: BP controlled - maintain MAP>65mmHg - keep SBP between 120 and 140 - off Nicardipine gtt -COPD: - given SVT/A-fib off albuterol and contineu atrovent - maintain spo2>92% - bpap/cpap prn -continue rx as per pulmonary -d/c'sally vo -ANemia: will transfuse blood to keep hemodynamic stability -continue DVT ppx heparin SQ -continue pud ppx pepcid -neuro-vascular eval q4hrs and if decrease signs of circulation, call vascular team -tolerating oral diet - Date & Time Date: 03/16/18 Time: 12:02
--- NOTE | 2018-03-16 13:30 | CP.PCM.PN ---
Subjective - Date & Time of Evaluation Date of Evaluation: 03/16/18 Time of Evaluation: 11:15 - Subjective Subjective: clinically same Objective - Vital Signs/Intake and Output Vital Signs (last 24 hours): Temp Pulse Resp BP Pulse Ox 97.8 F 100 H 24 112/58 L 94 L 03/16/18 12:00 03/16/18 13:00 03/16/18 13:00 03/16/18 12:57 03/16/18 13:00 Intake and Output: 03/16/18 03/16/18 06:59 18:59 Intake Total 900 1070 Output Total 1450 40 Balance -550 1030 - Medications Medications: Current Medications Aspirin (Aspirin Chewable) 81 mg PO DAILY [facility] Last Admin: 03/16/18 09:20 Dose: 81 mg Clopidogrel Bisulfate (Plavix) 75 mg PO DAILY [facility] Last Admin: 03/16/18 09:20 Dose: 75 mg Heparin Sodium (Porcine) (Heparin) 5,000 units SC Q12 [facility] Last Admin: 03/16/18 09:23 Dose: 5,000 units Hydralazine HCl (Apresoline) 10 mg IVP Q6H PRN PRN Reason: SBP Last Admin: 03/16/18 06:34 Dose: 10 mg Hydralazine HCl (Apresoline) 25 mg PO QID [facility] Last Admin: 03/16/18 09:20 Dose: 25 mg Sodium Phosphate 15 mmole/ (Dextrose) 255 mls @ 42.5 mls/hr IV .Q6H [facility] Stop: 03/16/18 20:14 Last Admin: 03/16/18 09:10 Dose: 42.5 mls/hr Ipratropium [place] (Atrovent) 0.5 mg IH RQ6 PRN PRN Reason: Shortness of Breath Rosuvastatin Calcium (Crestor) 10 mg PO HS [facility] Last Admin: 03/15/18 21:55 Dose: 10 mg Verapamil HCl (Calan Sr Tab) 120 mg PO DAILY [facility] Last Admin: 03/16/18 09:31 Dose: 120 mg Verapamil HCl (Verapamil Inj) 5 mg IVP Q4H PRN PRN Reason: Heart rate - Labs Labs: 03/16/18 06:26 03/16/18 06:26 PT 10.8 SECONDS (9.7-12.2) 08/12/18 06:00 INR 1.0 03/16/18 06:00 APTT 28 SECONDS (21-34) 03/16/18 06:00 - Constitutional Appears: Well - Head Exam Head Exam: ATRAUMATIC, NORMAL INSPECTION, NORMOCEPHALIC - Eye Exam Eye Exam: EOMI, Normal appearance, PERRL Pupil Exam: NORMAL ACCOMODATION, PERRL - ENT Exam ENT Exam: Mucous Membranes Moist, Normal Exam - Neck Exam Neck Exam: Full ROM, Normal Inspection. absent: Lymphadenopathy - Respiratory Exam Respiratory Exam: Decreased Breath Sounds - Cardiovascular Exam Cardiovascular Exam: REGULAR RHYTHM, +S1, +S2 - GI/Abdominal Exam GI & Abdominal Exam: Soft, Diminished Bowel Sounds - Rectal Exam Rectal Exam: Deferred
[2018-03-16] MEDS: Ipratropium 0.02% Inhal Soln (0.5 mg/2.5 ml) UD IH PRN ×2 (13:35→20:08)
--- NOTE | 2018-03-16 16:58 | RAD ---
Date of service: 03/16/2018 HISTORY: effusion COMPARISON: Chest radiograph dated 03/14/2018. FINDINGS: LUNGS: Stable chronic prominence of the bilateral interstitial markings. No focal consolidation. PLEURA: No significant pleural effusion identified, no pneumothorax apparent. CARDIOVASCULAR: Atherosclerotic aortic calcifications. Cardiomediastinal silhouette stably prominent. OSSEOUS STRUCTURES: Unchanged. VISUALIZED UPPER ABDOMEN: Normal. OTHER FINDINGS: None. IMPRESSION: No focal consolidation or pleural effusion.
[2018-03-17] MEDS: Albuterol-Ipratrop 3 mg / 0.5 (3 ml) UD INH SCH ×2 (13:43→19:17)
[2018-03-17] MEDS: Oxycodone/Acetaminophen 5/325 mg Tab PO PRN (13:45)
[2018-03-17] MEDS: Verapamil 120 mg ER Tab PO SCH (13:45)
--- NOTE | 2018-03-17 15:25 | CP.PCM.PN ---
Subjective - Date & Time of Evaluation Date of Evaluation: 03/17/18 Time of Evaluation: 07:00 - Subjective Subjective: VASCULAR SURGERY PROGRESS NOTE FOR DR. GUZMÁN Patient seen and examined at bedside in the ICU. He was transferred from the ICU to the floor after AM rounds. He reports pain in his left foot. Denies abdominal pain. Objective - Vital Signs/Intake and Output Vital Signs (last 24 hours): Temp Pulse Resp BP Pulse Ox 97.5 F L 68 21 188/88 H 95 03/17/18 08:45 03/17/18 11:06 03/17/18 08:45 03/17/18 08:45 03/17/18 08:45 Intake and Output: 03/17/18 03/17/18 06:59 18:59 Intake Total 100 240 Output Total 600 1000 Balance -500 -760 - Medications Medications: Current Medications Albuterol/Ipratropium (Duoneb 3 Mg/0.5 Mg (3 Ml) Ud) 3 ml INH RQ6 [facility] Last Admin: 03/17/18 13:43 Dose: 3 ml Aspirin (Aspirin Chewable) 81 mg PO DAILY [facility] Last Admin: 03/17/18 10:25 Dose: 81 mg Clopidogrel Bisulfate (Plavix) 75 mg PO DAILY [facility] Last Admin: 03/17/18 10:25 Dose: 75 mg Heparin Sodium (Porcine) (Heparin) 5,000 units SC Q12 [facility] Last Admin: 03/17/18 10:25 Dose: 5,000 units Hydralazine HCl (Apresoline) 10 mg IVP Q6H PRN PRN Reason: SBP Last Admin: 03/16/18 06:34 Dose: 10 mg Hydralazine HCl (Apresoline) 25 mg PO QID [facility] Last Admin: 03/17/18 13:46 Dose: 25 mg Ipratropium [place] (Atrovent) 0.5 mg IH RQ6 PRN PRN Reason: Shortness of Breath Last Admin: 03/16/18 20:08 Dose: 0.5 mg Oxycodone/Acetaminophen (Percocet 5/325 Mg Tab) 1 tab PO Q6H PRN PRN Reason: Pain, moderate (4-7) Stop: 03/20/18 13:35 Last Admin: 03/17/18 13:45 Dose: 1 tab Rosuvastatin Calcium (Crestor) 10 mg PO HS [facility] Last Admin: 03/16/18 21:19 Dose: 10 mg Verapamil HCl (Calan Sr Tab) 120 mg PO DAILY [facility] Last Admin: 03/17/18 13:45 Dose: 120 mg Verapamil HCl (Verapamil Inj) 5 mg IVP Q4H PRN PRN Reason: Heart rate - Labs Labs: 03/16/18 06:26 03/16/18 06:26 PT 10.8 SECONDS (9.7-12.2) 03/16/18 06:00 INR 1.0 03/16/18 06:00 APTT 28 SECONDS (21-34) 03/16/18 06:00 - Constitutional Appears: Non-toxic, No Acute Distress - Head Exam Head Exam: ATRAUMATIC, NORMAL INSPECTION - Respiratory Exam Respiratory Exam: NORMAL BREATHING PATTERN. absent: Respiratory Distress - Cardiovascular Exam Cardiovascular Exam: +S1, +S2 - GI/Abdominal Exam GI & Abdominal Exam: Soft. absent: Distended, Firm, Guarding, Rigid, Tenderness Additional comments: Palpable fem-fem graft - Extremities Exam Additional comments: Bilateral femoral dressings clean/dry/intact Doppler signals to DP and PT bilaterally Both feet warm - Neurological Exam Neurological Exam: Alert, Awake - Skin Skin Exam: Normal Color, Warm Assessment and Plan - Assessment and Plan (Free Text) Assessment: 87yo M s/p Right to left fem-fem bypass with Dacron graft, left common femoral endarterectomy POD#3 - Doppler signals to bilateral DP and PT - Continue DVT ppx, ASA, Plavix - Percocet for pain - PT - Will continue to monitor - Discussed plan with Dr. Diamond [place] PGY-4
--- NOTE | 2018-03-17 18:17 | CP.PCM.PN ---
Subjective - Date & Time of Evaluation Date of Evaluation: 03/17/18 Time of Evaluation: 10:30 - Subjective Subjective: patient seen and examined Denies shortness of breath, denies cough, denies fever s/p Right to left fem-fem bypass with Dacron graft, left common femoral endarterectomy Objective - Vital Signs/Intake and Output Vital Signs (last 24 hours): Temp Pulse Resp BP Pulse Ox 97.6 F 88 20 153/82 H 95 03/17/18 16:00 03/17/18 16:00 03/17/18 16:00 03/17/18 16:00 03/17/18 16:00 Intake and Output: 03/17/18 03/17/18 06:59 18:59 Intake Total 100 240 Output Total 600 1000 Balance -500 -760 - Medications Medications: Current Medications Albuterol/Ipratropium (Duoneb 3 Mg/0.5 Mg (3 Ml) Ud) 3 ml INH RQ6 [facility] Last Admin: 03/17/18 13:43 Dose: 3 ml Aspirin (Aspirin Chewable) 81 mg PO DAILY [facility] Last Admin: 03/17/18 10:25 Dose: 81 mg Clopidogrel Bisulfate (Plavix) 75 mg PO DAILY [facility] Last Admin: 03/17/18 10:25 Dose: 75 mg Heparin Sodium (Porcine) (Heparin) 5,000 units SC Q12 [facility] Last Admin: 03/17/18 10:25 Dose: 5,000 units Hydralazine HCl (Apresoline) 10 mg IVP Q6H PRN PRN Reason: SBP Last Admin: 03/16/18 06:34 Dose: 10 mg Hydralazine HCl (Apresoline) 25 mg PO QID [facility] Last Admin: 03/17/18 18:00 Dose: 25 mg Ipratropium [place] (Atrovent) 0.5 mg IH RQ6 PRN PRN Reason: Shortness of Breath Last Admin: 03/16/18 20:08 Dose: 0.5 mg Oxycodone/Acetaminophen (Percocet 5/325 Mg Tab) 1 tab PO Q6H PRN PRN Reason: Pain, moderate (4-7) Stop: 03/20/18 13:35 Last Admin: 03/17/18 13:45 Dose: 1 tab Rosuvastatin Calcium (Crestor) 10 mg PO HS [facility] Last Admin: 03/16/18 21:19 Dose: 10 mg Verapamil HCl (Calan Sr Tab) 120 mg PO DAILY [facility] Last Admin: 03/17/18 13:45 Dose: 120 mg Verapamil HCl (Verapamil Inj) 5 mg IVP Q4H PRN PRN Reason: Heart rate - Labs Labs: 03/16/18 06:26 03/16/18 06:26 PT 10.8 SECONDS (9.7-12.2) 03/16/18 06:00 INR 1.0 03/16/18 06:00 APTT 28 SECONDS (21-34) 03/16/18 06:00 - Head Exam Head Exam: ATRAUMATIC, NORMOCEPHALIC - ENT Exam ENT Exam: Mucous Membranes Moist - Neck Exam Neck Exam: Normal Inspection - Respiratory Exam Respiratory Exam: Clear to Ausculation Bilateral - Cardiovascular Exam Cardiovascular Exam: REGULAR RHYTHM Assessment and Plan (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
--- NOTE | 2018-03-17 18:30 | CP.PCM.PN ---
Subjective - Date & Time of Evaluation Date of Evaluation: 03/17/18 Time of Evaluation: 08:15 - Subjective Subjective: clinically same Objective - Vital Signs/Intake and Output Vital Signs (last 24 hours): Temp Pulse Resp BP Pulse Ox 97.6 F 88 20 153/82 H 95 03/17/18 16:00 03/17/18 16:00 03/17/18 16:00 03/17/18 16:00 03/17/18 16:00 Intake and Output: 03/17/18 03/17/18 06:59 18:59 Intake Total 100 240 Output Total 600 1000 Balance -500 -760 - Medications Medications: Current Medications Albuterol/Ipratropium (Duoneb 3 Mg/0.5 Mg (3 Ml) Ud) 3 ml INH RQ6 [facility] Last Admin: 03/17/18 13:43 Dose: 3 ml Aspirin (Aspirin Chewable) 81 mg PO DAILY [facility] Last Admin: 03/17/18 10:25 Dose: 81 mg Clopidogrel Bisulfate (Plavix) 75 mg PO DAILY [facility] Last Admin: 03/17/18 10:25 Dose: 75 mg Heparin Sodium (Porcine) (Heparin) 5,000 units SC Q12 [facility] Last Admin: 03/17/18 10:25 Dose: 5,000 units Hydralazine HCl (Apresoline) 10 mg IVP Q6H PRN PRN Reason: SBP Last Admin: 03/16/18 06:34 Dose: 10 mg Hydralazine HCl (Apresoline) 25 mg PO QID [facility] Last Admin: 03/17/18 18:00 Dose: 25 mg Ipratropium [place] (Atrovent) 0.5 mg IH RQ6 PRN PRN Reason: Shortness of Breath Last Admin: 03/16/18 20:08 Dose: 0.5 mg Oxycodone/Acetaminophen (Percocet 5/325 Mg Tab) 1 tab PO Q6H PRN PRN Reason: Pain, moderate (4-7) Stop: 03/20/18 13:35 Last Admin: 03/17/18 13:45 Dose: 1 tab Rosuvastatin Calcium (Crestor) 10 mg PO HS [facility] Last Admin: 03/16/18 21:19 Dose: 10 mg Verapamil HCl (Calan Sr Tab) 120 mg PO DAILY [facility] Last Admin: 03/17/18 13:45 Dose: 120 mg Verapamil HCl (Verapamil Inj) 5 mg IVP Q4H PRN PRN Reason: Heart rate - Labs Labs: 03/16/18 06:26 03/16/18 06:26 PT 10.8 SECONDS (9.7-12.2) 03/16/18 06:00 INR 1.0 03/16/18 06:00 APTT 28 SECONDS (21-34) 03/16/18 06:00 - Constitutional Appears: Well - Head Exam Head Exam: ATRAUMATIC, NORMAL INSPECTION, NORMOCEPHALIC - Eye Exam Eye Exam: EOMI, Normal appearance, PERRL Pupil Exam: NORMAL ACCOMODATION, PERRL - ENT Exam ENT Exam: Mucous Membranes Moist, Normal Exam - Neck Exam Neck Exam: Full ROM, Normal Inspection. absent: Lymphadenopathy - Respiratory Exam Respiratory Exam: Decreased Breath Sounds - Cardiovascular Exam Cardiovascular Exam: REGULAR RHYTHM, +S1, +S2 - GI/Abdominal Exam GI & Abdominal Exam: Soft, Diminished Bowel Sounds - Rectal Exam Rectal Exam: Deferred
--- NOTE | 2018-03-17 19:38 | CP.PCM.PN ---
Subjective - Date & Time of Evaluation Date of Evaluation: 03/17/18 Time of Evaluation: 19:36 - Subjective Subjective: No cardiac complaints no fevers or chills Objective - Vital Signs/Intake and Output Vital Signs (last 24 hours): Temp Pulse Resp BP Pulse Ox 97.6 F 88 20 153/82 H 95 03/17/18 16:00 03/17/18 16:00 03/17/18 16:00 03/17/18 16:00 03/17/18 16:00 Intake and Output: 03/17/18 03/18/18 18:59 06:59 Intake Total 240 Output Total 1000 Balance -760 - Medications Medications: Current Medications Albuterol/Ipratropium (Duoneb 3 Mg/0.5 Mg (3 Ml) Ud) 3 ml INH RQ6 [facility] Last Admin: 03/17/18 19:17 Dose: 3 ml Aspirin (Aspirin Chewable) 81 mg PO DAILY [facility] Last Admin: 03/17/18 10:25 Dose: 81 mg Clopidogrel Bisulfate (Plavix) 75 mg PO DAILY [facility] Last Admin: 03/17/18 10:25 Dose: 75 mg Heparin Sodium (Porcine) (Heparin) 5,000 units SC Q12 [facility] Last Admin: 03/17/18 10:25 Dose: 5,000 units Hydralazine HCl (Apresoline) 10 mg IVP Q6H PRN PRN Reason: SBP Last Admin: 03/16/18 06:34 Dose: 10 mg Hydralazine HCl (Apresoline) 25 mg PO QID [facility] Last Admin: 03/17/18 18:00 Dose: 25 mg Ipratropium [place] (Atrovent) 0.5 mg IH RQ6 PRN PRN Reason: Shortness of Breath Last Admin: 03/16/18 20:08 Dose: 0.5 mg Oxycodone/Acetaminophen (Percocet 5/325 Mg Tab) 1 tab PO Q6H PRN PRN Reason: Pain, moderate (4-7) Stop: 03/20/18 13:35 Last Admin: 03/17/18 13:45 Dose: 1 tab Rosuvastatin Calcium (Crestor) 10 mg PO HS [facility] Last Admin: 03/16/18 21:19 Dose: 10 mg Verapamil HCl (Calan Sr Tab) 120 mg PO DAILY [facility] Last Admin: 03/17/18 13:45 Dose: 120 mg Verapamil HCl (Verapamil Inj) 5 mg IVP Q4H PRN PRN Reason: Heart rate - Labs Labs: 03/16/18 06:26 03/16/18 06:26 PT 10.8 SECONDS (9.7-12.2) 03/16/18 06:00 INR 1.0 03/16/18 06:00 APTT 28 SECONDS (21-34) 03/16/18 06:00 - Constitutional Appears: No Acute Distress - Eye Exam Eye Exam: EOMI, Normal appearance, PERRL - ENT Exam ENT Exam: Mucous Membranes Moist, Normal Oropharynx - Neck Exam Neck Exam: Normal Inspection - Respiratory Exam Respiratory Exam: Clear to Ausculation Bilateral. absent: Rhonchi, Wheezes - Cardiovascular Exam Cardiovascular Exam: REGULAR RHYTHM, +S1, +S2. absent: Murmur - Extremities Exam Extremities Exam: Normal Inspection. absent: Calf Tenderness, Pedal Edema - Neurological Exam Neurological Exam: Alert, Awake - Psychiatric Exam Psychiatric exam: Normal Affect - Skin Skin Exam: Normal Color, Warm Assessment and Plan - Assessment and Plan (Free Text) Assessment: 87 year old man with critical limb ischemia s/p Fem Fem bypass and left [employer] endarterectomy on DAPT HTN is chronic and uncontrolled on hydralazine: ----> suggest addition of an ARB Dyslipidemia is chronic and stable on crestor
[2018-03-17 19:57] LABS: MEAN CORPUSCULAR HEMOGLOBIN 31.2 pg (27.0-31.0); MEAN CORPUSCULAR HGB CONC 33.1 g/dL (33.0-37.0); MEAN PLATELET VOLUME 7.5 fL (7.2-11.7); RBC 3.87 Mil/uL (4.40-5.90); RED CELL DISTRIBUTION WIDTH 15.4 % (11.5-14.5); WHITE BLOOD COUNT 11.2 K/uL (4.8-10.8)
--- NOTE | 2018-03-17 23:15 | CARD ---
APPROVED REPORT Date of service: 03/16/2018 EKG Measurement Heart [id number] [id number] <Conclusion> Normal sinus rhythm Right bundle branch block Left anterior fascicular block Bifascicular block Abnormal ECG
[2018-03-18] MEDS: Oxycodone/Acetaminophen 5/325 mg Tab PO PRN ×2 (01:02→14:38)
[2018-03-18] MEDS: Albuterol-Ipratrop 3 mg / 0.5 (3 ml) UD INH SCH ×3 (01:09→13:42)
[2018-03-18 06:34] LABS: BASO % 0.2 % (0.0-2.0); EOS # 0.1 K/uL (0.0-0.7); EOS % 0.5 % (0.0-4.0); HEMOGLOBIN 12.6 g/dL (12.0-18.0); LYMPH # 2.5 K/uL (1.0-4.3); LYMPH % 20.9 % (20.0-40.0); MEAN CELL VOLUME 93.7 fL (80.0-94.0); MEAN CORPUSCULAR HEMOGLOBIN 31.6 pg (27.0-31.0); MEAN CORPUSCULAR HGB CONC 33.7 g/dL (33.0-37.0); MEAN PLATELET VOLUME 7.6 fL (7.2-11.7); MONO # 1.3 K/uL (0.0-0.8); MONO % 11.1 % (0.0-10.0); NEUT # 7.9 K/uL (1.8-7.0); NEUT % 67.3 % (50.0-75.0); NRBC % 0.1 % (0.0-2.0); RBC 3.98 Mil/uL (4.40-5.90); RED CELL DISTRIBUTION WIDTH 15.4 % (11.5-14.5); WHITE BLOOD COUNT 11.7 K/uL (4.8-10.8)
[2018-03-18] MEDS: Verapamil 120 mg ER Tab PO SCH (09:49)
--- NOTE | 2018-03-18 10:41 | CP.PCM.PN ---
Subjective - Date & Time of Evaluation Date of Evaluation: 03/18/18 Time of Evaluation: 10:39 - Subjective Subjective: Feels fine no leg pains no CP or SOB no fevers or chills Objective - Vital Signs/Intake and Output Vital Signs (last 24 hours): Temp Pulse Resp BP Pulse Ox 97.8 F 85 18 161/62 H 95 03/18/18 08:00 03/18/18 08:00 03/18/18 08:00 03/18/18 08:00 03/18/18 08:00 Intake and Output: 03/18/18 03/18/18 06:59 18:59 Intake Total 500 Output Total 800 Balance -300 - Medications Medications: Current Medications Albuterol/Ipratropium (Duoneb 3 Mg/0.5 Mg (3 Ml) Ud) 3 ml INH RQ6 [facility] Last Admin: 03/18/18 07:50 Dose: 3 ml Aspirin (Aspirin Chewable) 81 mg PO DAILY [facility] Last Admin: 03/18/18 09:47 Dose: 81 mg Clopidogrel Bisulfate (Plavix) 75 mg PO DAILY [facility] Last Admin: 03/18/18 09:47 Dose: 75 mg Heparin Sodium (Porcine) (Heparin) 5,000 units SC Q12 [facility] Last Admin: 03/18/18 09:47 Dose: 5,000 units Hydralazine HCl (Apresoline) 10 mg IVP Q6H PRN PRN Reason: SBP Last Admin: 03/16/18 06:34 Dose: 10 mg Hydralazine HCl (Apresoline) 25 mg PO QID [facility] Last Admin: 03/18/18 09:47 Dose: 25 mg Ipratropium [place] (Atrovent) 0.5 mg IH RQ6 PRN PRN Reason: Shortness of Breath Last Admin: 03/16/18 20:08 Dose: 0.5 mg Oxycodone/Acetaminophen (Percocet 5/325 Mg Tab) 1 tab PO Q6H PRN PRN Reason: Pain, moderate (4-7) Stop: 03/20/18 13:35 Last Admin: 03/18/18 01:02 Dose: 1 tab Rosuvastatin Calcium (Crestor) 10 mg PO HS [facility] Last Admin: 03/17/18 22:05 Dose: 10 mg Temazepam (Restoril) 15 mg PO HS PRN PRN Reason: Insomnia Last Admin: 03/17/18 22:05 Dose: 15 mg Verapamil HCl (Calan Sr Tab) 120 mg PO DAILY [facility] Last Admin: 03/18/18 09:49 Dose: 120 mg Verapamil HCl (Verapamil Inj) 5 mg IVP Q4H PRN PRN Reason: Heart rate - Labs Labs: 03/18/18 06:20 03/16/18 06:26 PT 10.8 SECONDS (9.7-12.2) 03/16/18 06:00 INR 1.0 03/16/18 06:00 APTT 28 SECONDS (21-34) 03/16/18 06:00 - Constitutional Appears: No Acute Distress - Eye Exam Eye Exam: EOMI, Normal appearance, PERRL - ENT Exam ENT Exam: Mucous Membranes Moist, Normal Oropharynx - Respiratory Exam Respiratory Exam: Clear to Ausculation Bilateral. absent: Rhonchi, Wheezes - Cardiovascular Exam Cardiovascular Exam: REGULAR RHYTHM, +S1, +S2. absent: Murmur - GI/Abdominal Exam GI & Abdominal Exam: Soft, Normal Bowel Sounds. absent: Tenderness - Extremities Exam Extremities Exam: absent: Calf Tenderness - Neurological Exam Neurological Exam: Alert, Awake - Psychiatric Exam Psychiatric exam: Normal Affect - Skin Skin Exam: Normal Color, Warm Assessment and Plan - Assessment and Plan (Free Text) Assessment: 87 year old man with critical limb ischemia s/p Fem Fem bypass and left LO[employer] endarterectomy Continue DAPT HTN is chronic and uncontrolled on hydralazine: ----> suggest addition of losartan 25 daily. Dyslipidemia is chronic and stable on crestor repeat ekg, continue tele: If AFIB detected then will need to consider AC with ASA and Noac and d/c plavix.
--- NOTE | 2018-03-18 14:44 | CP.PCM.PN ---
Subjective - Date & Time of Evaluation Date of Evaluation: 03/18/18 Time of Evaluation: 14:43 - Subjective Subjective: Patient seen and examined at bedside.He reports pain in his left foot. Denies abdominal pain./ NO SIGN OF DISTRESS NOTED Objective - Vital Signs/Intake and Output Vital Signs (last 24 hours): Temp Pulse Resp BP Pulse Ox 97.8 F 85 18 161/62 H 95 03/18/18 08:00 03/18/18 08:00 03/18/18 08:00 03/18/18 08:00 03/18/18 08:00 Intake and Output: 03/18/18 03/18/18 06:59 18:59 Intake Total 500 Output Total 800 Balance -300 - Medications Medications: Current Medications Albuterol/Ipratropium (Duoneb 3 Mg/0.5 Mg (3 Ml) Ud) 3 ml INH RQ6 [facility] Last Admin: 03/18/18 13:42 Dose: 3 ml Aspirin (Aspirin Chewable) 81 mg PO DAILY [facility] Last Admin: 03/18/18 09:47 Dose: 81 mg Clopidogrel Bisulfate (Plavix) 75 mg PO DAILY [facility] Last Admin: 03/18/18 09:47 Dose: 75 mg Heparin Sodium (Porcine) (Heparin) 5,000 units SC Q12 [facility] Last Admin: 03/18/18 09:47 Dose: 5,000 units Hydralazine HCl (Apresoline) 10 mg IVP Q6H PRN PRN Reason: SBP Last Admin: 03/16/18 06:34 Dose: 10 mg Hydralazine HCl (Apresoline) 25 mg PO QID [facility] Last Admin: 03/18/18 13:33 Dose: 25 mg Ipratropium [place] (Atrovent) 0.5 mg IH RQ6 PRN PRN Reason: Shortness of Breath Last Admin: 03/16/18 20:08 Dose: 0.5 mg Losartan Potassium (Cozaar) 25 mg PO DAILY [facility] Last Admin: 03/18/18 10:59 Dose: 25 mg Oxycodone/Acetaminophen (Percocet 5/325 Mg Tab) 1 tab PO Q6H PRN PRN Reason: Pain, moderate (4-7) Stop: 03/20/18 13:35 Last Admin: 03/18/18 14:38 Dose: 1 tab Rosuvastatin Calcium (Crestor) 10 mg PO HS [facility] Last Admin: 03/17/18 22:05 Dose: 10 mg Temazepam (Restoril) 15 mg PO HS PRN PRN Reason: Insomnia Last Admin: 03/17/18 22:05 Dose: 15 mg Verapamil HCl (Calan Sr Tab) 120 mg PO DAILY [facility] Last Admin: 03/18/18 09:49 Dose: 120 mg Verapamil HCl (Verapamil Inj) 5 mg IVP Q4H PRN PRN Reason: Heart rate - Labs Labs: 03/18/18 06:20 03/16/18 06:26 PT 10.8 SECONDS (9.7-12.2) 03/16/18 06:00 INR 1.0 03/16/18 06:00 APTT 28 SECONDS (21-34) 03/16/18 06:00 Assessment and Plan - Assessment and Plan (Free Text) Assessment: PATIENT SEEN AND EXAMINED AT THE BEDSIDE LUNG SOUND CLEAR JAN FOOT DOPPLER SIGNAL DP AND PT JAN DISCUSS WITH SX TEAM WHO CLEAR FOR DC DISCUSS WITH DR GAYLE WHO AGREE AND CLEAR FOR DC PLACE UNDER THE SERVICE OF DR Lance GAYLE AT [facility] [place]---=CALL FOR ADMITTING ORDER NEW PRESCRIPTION GIVEN ASPIRIN 81 MG PO DAILY PLAVIX 75 MG PO DAILY HYDRALAZINE 25 MG PO QID [place] 25 MG PO DAILY PERCOCET 5/325 MG PO Q6H FOR PAIN CRESTOR 10 MG PO AT HS RESTORIL 15 MG PO AT HS ACTIVITY TOLERATED AND FACILITY PROTOCOL CALL DR Lance GAYLE FOR FURTHER ORDER DISCUSS WITH PATIENT AND PATIENT'S FAMILY WHO AGREE AND VERBALIZED UNDERSTANDING
[2018-03-18 16:30] VITALS: BP 115/71; PULSE 91; RESP 20; TEMP 97.5; O2SAT 96
--- NOTE | 2018-03-19 12:47 | CARD ---
APPROVED REPORT Date of service: 03/18/2018 EKG Measurement Heart [id number] <Conclusion> Sinus rhythm with premature supraventricular complexes Right bundle branch block Left anterior fascicular block Bifascicular block Septal infarct, age undetermined Abnormal ECG
== END 2018-03-18 17:55 | DRG 253 ==
LOC: C.ER 10:58 → C.9E 17:07 → C.6T 22:17 → C.9S 03-14 12:19 → C.9I 03-14 16:07 → C.5S 03-17 08:37
PROVIDERS: ADMIT Internal Medicine Nephrology; ATTEND Internal Medicine Nephrology
PROC: 04CL0ZZ Extirpation of Matter from Left Femoral Artery, Open Approach (ICD-10-PCS; 2018-03-14)
PROC: 041 Lower Arteries, Bypass (ICD-10-PCS; principal; 2018-03-14 13:30)
DX: I70.222 Atherosclerosis of native arteries of extremities with rest pain, left leg (principal); E87.2 Acidosis; I50.32 Chronic diastolic (congestive) heart failure; E78.5 Hyperlipidemia, unspecified; D64.9 Anemia, unspecified; I11.0 Hypertensive heart disease with heart failure; I48.91 Unspecified atrial fibrillation; I70.292 Other atherosclerosis of native arteries of extremities, left leg; J44.9 Chronic obstructive pulmonary disease, unspecified; M20.10 Hallux valgus (acquired), unspecified foot; M21.00 Valgus deformity, not elsewhere classified, unspecified site; N28.9 Disorder of kidney and ureter, unspecified; F17.210 Nicotine dependence, cigarettes, uncomplicated; R45.1 Restlessness and agitation